=== PATIENT | male | born 1950 | race Caucasian/White ===

== ENCOUNTER 2023-10-17 07:33 | Observation (INO) ==
--- NOTE | 2023-09-03 09:44 | PAT Medication Instructions ---
Medication Instructions Date of Service September 03, 2023 Home Medications Medication Instructions Recorded furosemide 20 mg tablet (Lasix) 20 mg PO DAILY PRN edema #7 tabs 04/14/20 furosemide 20 mg tablet (Lasix) 20 mg PO DAILY PRN edema alpha lipoic acid 50 mg tablet 50 mg PO QAM aspirin 81 mg capsule 81 mg PO HS atenolol 25 mg tablet 25 mg PO QAM 1 cholecalciferol (vitamin D3) 50 mcg (2,000 unit) capsule (Vitamin D3) 50 mcg PO DAILY cyanocobalamin (vitamin B-12) 50 mcg tablet (Vitamin B-12) 50 mcg PO QAM empagliflozin 10 mg tablet (Jardiance) 10 mg PO QAM losartan 100 mg-hydrochlorothiazide 25 mg tablet 1 tab PO HS metformin 500 mg tablet 500 mg PO BID multivitamin 1 tab PO QAM potassium chloride 20 mEq tablet,extended release 20 meq PO BID rosuvastatin 20 mg tablet 20 mg PO HS warfarin 10 mg tablet 10 mg PO HS warfarin 7.5 mg tablet 7.5 mg PO HS ASK your prescriber and surgeon warfarin 10 mg tablet 10 mg PO HS warfarin 7.5 mg tablet 7.5 mg PO HS STOP taking 3 days before surgery empagliflozin 10 mg tablet (Jardiance) 10 mg PO QAM STOP taking 2 weeks before surgery alpha lipoic acid 50 mg tablet 50 mg PO QAM DO NOT take the morning of surgery furosemide 20 mg tablet (Lasix) 20 mg PO DAILY PRN edema cholecalciferol (vitamin D3) 50 mcg (2,000 unit) capsule (Vitamin D3) 50 mcg PO DAILY cyanocobalamin (vitamin B-12) 50 mcg tablet (Vitamin B-12) 50 mcg PO QAM metformin 500 mg tablet 500 mg PO BID multivitamin 1 tab PO QAM potassium chloride 20 mEq tablet,extended release 20 meq PO BID Take morning of surgery With a small sip of water, OTHERWISE NOTHING TO EAT OR DRINK AFTER MIDNIGHT: atenolol 25 mg tablet 25 mg PO QAM Take evening before surgery potassium chloride 20 mEq tablet,extended release 20 meq PO BID rosuvastatin 20 mg tablet 20 mg PO HS losartan 100 mg-hydrochlorothiazide 25 mg tablet 1 tab PO HS metformin 500 mg tablet 500 mg PO BID aspirin 81 mg capsule 81 mg PO HS Other Notes If you have any questions please call us at [phone] or [phone] or [phone] or [phone]
--- NOTE | 2023-09-11 08:12 | Anesthesiology Consultation ---
Date of Service September 11, 2023 Assessment & Plan (1) Encounter for pre-operative examination: Chart Review Chart Review: Acceptable Risk for Surgery (pending PCP clearance ) and Patient seen in Pre Admission Testing - Awaiting PCP clearance 09/26/23 (S) (please fax preop testing to PCP to review at PCP appt) - Check coags AM DOS - Check BSG AM DOS - Patient is NOT an OPJ candidate (surgeon's office informed) (Discussed with Dr. Cedillo) Per PAT appt on 09/11/23, no recent illness/disease exposures, illness related symptoms, or recent illness/disease positive tests. Will leave to surgeon's discretion if preop Covid testing needed Patient seen by cardiology 07/17/2023 = patient seen for follow-up and establish CAD. Had RCA stent in the past. LV systolic function is low normal. 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 Also has diabetes. Fortunately from cardiac standpoint he is asymptomatic and denies SOB, angina, syncope, or presyncope. No bleeding complications with Coumadin. Chronic diastolic heart failuregiven past diabetesadded Jardiance. Atrial fibrillationheart rate is controlled and on Coumadin. [id number] under good control. Preop evaluation: He is scheduled to get total hip replacement. 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 to this. Can hold Coumadin 7 days. 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 History Surgery Operation Date: 10/17/23 09:15 Proposed Procedures p Left Total Hip Replacement Anterior Approach - Cm Gates MD Height/Weight Height: 6 ft Weight: 126.2 kg Allergies Allergy/AdvReac Type Severity Reaction Status Date / Time No Known Allergies Allergy Verified 09/02/23 12:31 Medications Home Medications Medication Instructions Recorded Confirmed Last Taken furosemide 20 mg tablet (Lasix) 20 mg PO DAILY PRN edema #7 tabs 04/14/20 09/02/23 Unknown alpha lipoic acid 50 mg tablet 50 mg PO QAM 09/02/23 09/02/23 Unknown aspirin 81 mg capsule 81 mg PO HS 09/02/23 09/02/23 Unknown atenolol 25 mg tablet 25 mg PO QAM 09/02/23 09/02/23 Unknown cholecalciferol (vitamin D3) 50 50 mcg PO DAILY 09/02/23 09/02/23 Unknown mcg (2,000 unit) capsule (Vitamin D3) cyanocobalamin (vitamin B-12) 50 50 mcg PO QAM 09/02/23 09/02/23 Unknown mcg tablet (Vitamin B-12) empagliflozin 10 mg tablet 10 mg PO QAM 09/02/23 09/02/23 Unknown (Jardiance) losartan 100 1 tab PO HS 09/02/23 09/02/23 Unknown mg-hydrochlorothiazide 25 mg tablet metformin 500 mg tablet 500 mg PO BID 09/02/23 09/02/23 Unknown multivitamin 1 tab PO QAM 09/02/23 09/02/23 Unknown potassium chloride 20 mEq 20 meq PO BID 09/02/23 09/02/23 Unknown tablet,extended release rosuvastatin 20 mg tablet 20 mg PO HS 09/02/23 09/02/23 Unknown warfarin 10 mg tablet 10 mg PO HS 09/02/23 09/02/23 Unknown warfarin 7.5 mg tablet 7.5 mg PO HS 09/02/23 09/02/23 Unknown Past Medical History Medical History Chronic diastolic (congestive) heart failure CAD (coronary artery disease) s/p RCA stent 2005 On anticoagulant therapy Diabetes patient denies; on jardiance (for heart per patient) and metformin (for weight loss per patient) - Hgb A1C 6.4 at PAT appt on 09/11/23 (patient with presumed diabetes- well controlled) Hyperlipidemia Cough started ~ 2 weeks ago, was told by PCP was viral, no other symptoms reported in past 10 days almost complete resolution as of PAT appt 09/11/23 Edema LEs- on Lasix Neuropathy To bilateral feet Sleep apnea CPAP Obesity states reason for Metformin History of nephrectomy, 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 Hypertension Atrial fibrillation on warfarin daily- follows w/ [facility] cardio Exercise / Class Metabolic Activity II 4-5 Yardwork/Stairs/Walk up hill (one flight of stairs- no chest pain or SOB ) Past Surgical History Surgical History Hx of colonoscopy Hx of arthroscopic knee surgery Hx of cataract extraction Hx of cardiac catheterization 2005 X 1 stent; chest "pinching" and EKG changes, [facility] Past Anesthesia History No Hx of Anesthesia Complications and No Family Hx of Anesthesia Complications History of PONV No Hx of PONV and No Hx of Motion Sickness Social History Smoking Status: Never smoker Do You Dip or Chew Tobacco: No Hx Alcohol Use: Yes Alcohol type: beer alcohol intake frequency: holidays/special occasions only Hx Substance Use: No substance use type: does not use Review of Systems Patient denies chest pain, shortness of breath, dyspnea on exertion, reflux, cough, wheezing, palpitations. No hx of seizures, stroke, UT. No hx of blood clots or blood transfusions Physical Exam Vital Signs VITALS BP 116/73 P 68 TEMP 97.6 SP02 96% RESP 16 Constitutional no acute distress ENMT Mouth: no TMJ clicking Thyromental Distance: > or= 3.5 Finger Breadths (3.5) Mallampati Class: II Neck neck extension not limited Respiratory normal respiratory effort; no respiratory distress Auscultation: lungs clear to auscultation bilaterally and + diminished lung sounds (mildly throughout ); no wheezes Cardiovascular Heart Sounds: no murmur Vessels: no carotid bruit Irregularly irregular - rate controlled Musculoskeletal Spine: no pain with cervical ROM Extremities: extremities normal to inspection Psychiatric Orientation: alert Lab Results Anesthesia Preop Results Results Anesthesia Widget: WBC 5.53 K/ul (4.8-10.8) 09/11/23 Hgb 16.4 g/dl (14.0-18.0) 09/11/23 Hct 49.1 % (42.0-52.0) 09/11/23 Plt 210 K/uL (130-400) 09/11/23 Na 143 mmol/L (136-145) 09/11/23 K 4.2 mmol/L (3.5-5.1) 09/11/23 Cl 101 mmol/L (98-107) 09/11/23 CO2 34 mmol/L (21-32) H 09/11/23 BUN 24 mg/dl (6-23) H 09/11/23 Creat 1.58 mg/dl (0.6-1.4) H 09/11/23 Glucose Level 108 mg/dl (70-99(Fasting)) H 09/11/23 PT 22.7 Seconds (9.0-12.0) H 09/11/23 PTT 36.4 Seconds (21.0-31.0) H 09/11/23 INR 2.2 (0.9-1.1) H 09/11/23 HA1c 6.4 % (4.5-5.6) H 09/11/23 Urine Color Yellow 09/11/23 Urine Appearance Clear (Clear) 09/11/23 Urine pH 7.0 (4.5-7.5) 09/11/23 Urine Specific [place] 1.009 (1.000-1.030) 09/11/23 Urine Protein Negative (Negative) 09/11/23 Urine Glucose (UA) 2+ (Negative) H 09/11/23 Urine Ketones Negative (Negative) 09/11/23 Urine Blood Negative (Negative) 09/11/23 Urine Nitrite Negative (Negative) 09/11/23 Urine Bilirubin Negative (Negative) 09/11/23 Urine Urobilinogen Negative (Negative) 09/11/23 Urine Leukocyte Esterase Negative (Negative) 09/11/23 Blood Type B Positive 09/11/23 Antibody Screen NEGATIVE 09/11/23 Testing Laboratory Results Elevated creatinine (creat 1.4 per [facility] labs in 06/2022)- will send labs for PCP review Electrocardiogram Date: 09/11/23 Findings: + AFIB @ (61bpm ) Left axis deviation Low voltage QRS Poor R wave progression, consider anterior UT versus lead placement versus LVH When compared with EKG from April 14, 2020no significant change was found per cardio Chest X-Ray Date: 09/11/23 Findings: + NAD FINDINGS: No lines and tubes are seen. Calcified aortic knob is seen. Reticular interstitial opacities are seen. No evidence of pleural effusion or pneumothorax Echocardiogram Date: 06/22/21 EF: 50-54% LV Function: normal RWMA: + none Other Findings: no LVH No left ventricular mural thrombus Right ventricular cavity is mildly dilated with mildly reduced systolic function Biatrial dilation Mild TR. Aortic root and proximal ascending aorta are normal size based off body surface area Normal pulmonary pressure Stress Test Date: 08/12/23 Type: nuclear Probably normal pharmacologic Cardiolite stress test. The described abnormality most likely represents artifact Normal pharmacologic stress EKG Normal post-rest ejection fraction. Normal wall motion analysis imaging Cardiac Catheterization Date: 08/28/19 LAD 40%not hemodynamically significant D3 40% ostial stenosis Left circumflex with ostial 20% stenosis RCA with luminal irregularities RCA stent previously placed looks perfect Stress test showing anterior ischemia is presumably false positive
--- NOTE | 2023-10-15 16:54 | History & Physical Report ---
Date of Service October 15, 2023 Assessment & Plan (1) Degenerative joint disease of left hip: Plan Left total hip replacement direct anterior approach. Monitor overnight due to A-fib per anesthesia History of Present Illness Chief Complaint: Left hip pain Primary Care Provider: Macy Lui MD Patient is a 72-year-old male with a greater than 1 year history of left hip and groin pain. It has been associated with decreased decreased range of motion and increased pain with all activities of daily living. He has decreased standing and walking tolerance. Radiographic evidence of severe degenerative arthritis of the hip. He has failed both sacroiliac and intra-articular injections and is admitted for elective hip replacement surgery. He also has a history of severe spine disease and atrial fibrillation for which he is on chronic Coumadin. Allergies Allergy/AdvReac Type Severity Reaction Status Date / Time No Known Allergies Allergy Verified 09/02/23 12:31 Home Medications Medication Instructions Recorded Confirmed Type furosemide 20 mg tablet (Lasix) 20 mg PO DAILY PRN edema #7 tabs 04/14/20 09/02/23 Rx alpha lipoic acid 50 mg tablet 50 mg PO QAM 09/02/23 09/02/23 History aspirin 81 mg capsule 81 mg PO HS 09/02/23 09/02/23 History atenolol 25 mg tablet 25 mg PO QAM 09/02/23 09/02/23 History cholecalciferol (vitamin D3) 50 50 mcg PO DAILY 09/02/23 09/02/23 History mcg (2,000 unit) capsule (Vitamin D3) cyanocobalamin (vitamin B-12) 50 50 mcg PO QAM 09/02/23 09/02/23 History mcg tablet (Vitamin B-12) empagliflozin 10 mg tablet 10 mg PO QAM 09/02/23 09/02/23 History (Jardiance) losartan 100 1 tab PO HS 09/02/23 09/02/23 History mg-hydrochlorothiazide 25 mg tablet metformin 500 mg tablet 500 mg PO BID 09/02/23 09/02/23 History multivitamin 1 tab PO QAM 09/02/23 09/02/23 History potassium chloride 20 mEq 20 meq PO BID 09/02/23 09/02/23 History tablet,extended release rosuvastatin 20 mg tablet 20 mg PO HS 09/02/23 09/02/23 History warfarin 10 mg tablet 10 mg PO HS 09/02/23 09/02/23 History warfarin 7.5 mg tablet 7.5 mg PO HS 09/02/23 09/02/23 History Past Med/Surg History Medical History Chronic diastolic (congestive) heart failure CAD (coronary artery disease) s/p RCA stent 2006 On anticoagulant therapy Diabetes patient denies; on jardiance (for heart per patient) and metformin (for weight loss per patient) - Hgb A1C 6.4 at PAT appt on 09/11/23 (patient with presumed diabetes- well controlled) Hyperlipidemia Cough started ~ 2 weeks ago, was told by PCP was viral, no other symptoms reported in past 10 days almost complete resolution as of PAT appt 09/11/23 Edema LEs- on Lasix Neuropathy To bilateral feet Sleep apnea CPAP Obesity states reason for Metformin History of nephrectomy, 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 Hypertension Atrial fibrillation on warfarin daily- follows w/ [facility] cardio Surgical History Hx of colonoscopy Hx of arthroscopic knee surgery Hx of cataract extraction Hx of cardiac catheterization 2006 X 1 stent; chest "pinching" and EKG changes, [facility] Social History Smoking Status: Never smoker Second Hand Exposure: No; Do You Dip or Chew Tobacco: No; Tobacco Cessation Education Requested by Patient: No Hx Alcohol Use: Yes Alcohol type: beer Hx Substance Use: No Preferred Language: Maldivian Communication Ability: Effective [employer] Required: No Beliefs That Will Affect Care: None Current Living Situation: Spouse Other Information That Helps Us Care for You: No Feels Safe at Home: Yes Safety Concerns: Feels Safe At This Time Assistive Devices: CPAP Review of Systems Review of Systems: Hip pain Physical Exam Physical Exam: Weight 126 kg BMI 38 General: Obese male who appears his stated age. HEENT: NCAT, EOMI, PERRLA Neck: Neck negative JVD negative bruits Heart: Irregularly irregular rhythm without murmurs or gallops Lungs: Breath sounds clear and present in all odell Abdomen: Obese soft nontender bowel sounds positive Extremities: Left hip shows equal leg lengths to the right passive range of motion is 5 to 85 degrees flexion -10 degrees internal rotation all which reproduces groin pain Neurological and vascular: Intact
[~2023-10-17 07:33] MED LIST: ACETAMINOPHEN 500 MG TAB PO SCH; ATENOLOL 25 MG TABLET PO ONE; FAMOTIDINE 20 MG TAB PO SCH; GABAPENTIN 300 MG CAP PO SCH; LR 500ML BOLUS, THEN 15ML/HR IV SCH; LR 60ML/HR IV SCH; METOCLOPRAMIDE HCL 10 MG TABLET PO SCH; ROPIVACAINE 0.5% 5 MG/ML 30 ML VIAL ONE; ROPIVACAINE 0.5% HCL/PF 150 MG, BUPIVACAINE 0.75% MPF 20 ML, EPINEPHrine 30MG/30ML (OR ... INSTIL SCH; TRANEXAMIC ACID 1,000 MG **IV Intra-op IV SCH; TRANEXAMIC ACID 1,000 MG **IV Pre-op IV SCH; dexAMETHasone 4 MG TAB PO SCH; traMADol HCL 50 MG TABLET PO SCH
[2023-10-17] MEDS ORDERED: MIDAZOLAM HCL 1 MG/ML 2ML VIAL ONE (07:43)
--- OUTSIDE RECORDS SUMMARY | 2023-10-17 07:43 | External Medical Summary | Summary of Care ---
Author Name Unknown Organization [facility] Address [address] [place] [address] Phone [phone] Care Team Providers Care Instrument Operator Name Role Phone Billy Hobbs MD Primary Care Provider Reason for Visit * Reason Comments pre-op exam Hip surgery 10/17 Dr. Gates Encounter Details Date Type Department Care Team (Late st Contact Info) Description 09/26/2023 1:20 PM EST Office Visit [facility] [address] [facility] [place] [address] Macy Lui MD [address] [place] [address] Preoperative clearance*; Risk and functional assessment; DM type 2 nursing care encounter ([facility]); Type 2 diabetes mellitus with hemoglobin A1c goal of less than 7.5% ([facility]); Obstructive sleep apnea of adult; Primary osteoarthritis of one hip, left; Atherosclerosis of [place] coronary artery of [place] heart without angina pectoris; Chronic atrial fibrillation ([facility]); HTN, goal below 140/90; Chronic diastolic CHF (congestive heart failure) ([facility]); S/P angioplasty with stent Allergies No known active allergiesdocumented as of this encounter (statuses as of 09/30/2023) Medications Medication Sig Dispensed Refills Start Date End Date Status MULTIVITAMIN PO TABS Take 1 Tab by mouth daily. 0 0 03/04/2006 Active metroNIDAZOLE, topical, (METROCREAM) 0.75 % creamIndications:R osacea Apply topically to affected area 2 times a day. apply to affected area. 45 g 5 09/01/2018 Active Aspirin 81 MG Oral Tablet Delayed Release Take 1 Tablet by mouth at bedtime. 0 Active Alpha-Lipoic Acid 100 MG TABS Take 1 Tab by mouth daily. 0 Active Cholecalciferol (VITAMIN D) 2000 units Tablet Take 2000 units by mouth once daily 90 Tab 3 06/15/2019 Active nitroglycerin (NITROSTAT) 0.4 MG SUBLIndications:At herosclerosis of [place] coronary artery of [place] heart without angina pectoris one tab under tongue as needed for chest pain maximum 3 doses 25 Tab 5 06/15/2019 Active Cyanocobalamin (VITAMIN B 12) 500 MCG TABS Take 500 mcg by mouth daily. 0 Active CPAP every night at bedtime. Auto 5-20 cm 0 Active Tylenol 325 MG Oral Capsule (Acetaminophen) Take by mouth . 0 Acti ve Furosemide 40 MG Oral Tablet (Lasix) TAKE ONE TABLET BY MOUTH TWICE A DAY 180 Tablet 3 03/15/2023 03/14/2024 Active Potassium Chloride ER 20 MEQ Oral Tablet Extended Release TAKE ONE TABLET BY MOUTH TWICE A DAY 180 Tablet 3 03/15/2023 Active Rosuvastatin Calcium 20 MG Oral Tablet (Crestor)Indicatio ns:Dyslipidemia, goal LDL below 70 TAKE 1 TABLET BY MOUTH DAILY 90 Tablet 3 03/13/2023 03/12/2024 Active Losartan Potassium-HCTZ 100-25 MG Oral Tablet (Hyzaar) TAKE ONE TABLET BY MOUTH EVERY DAY IN THE MORNING 90 Tablet 3 02/25/2023 02/25/2024 Active metFORMIN HCl 500 MG Oral Tablet (Glucophage)Indica tions:Prediabetes TAKE 1 TABLET BY MOUTH TWICE A DAY WITH MORNING AND EVENING MEALS 180 Tablet 0 11/17/2022 11/17/2023 Active Fluticasone Propionate 50 MCG/ACT Nasal Suspension (Flonase Allergy Relief) Administer 2 Sprays into nostril in the morning and 2 Sprays before bedtime. Pt takes as needed only. 0 Active Empagliflozin 10 MG Oral Tablet (Jardiance) Take 1 Tablet by mouth in the morning. 90 Tablet 3 07/26/2023 Active Fluorouracil 5 % External Cream (Efudex)Indication s:AK (actinic keratosis) Apply twice daily to face and scalp for 3-4 weeks, followed by Vaseline until healed. 40 g 1 09/05/2023 Active Atenolol 50 MG Oral Tablet (Tenormin)Indicati ons:Atherosclerosi s of [place] coronary artery of [place] heart without angina pectoris TAKE ONE-HALF TABLET BY MOUTH EVERY DAY IN THE MORNING 45 Tablet 3 09/23/2023 09/22/2024 Active documented as of this encounter (statuses as of 09/30/2023) Active Problems Problem Noted Date Diagnosed Date Congestive heart failure with cardiomyopathy Sacroiliitis, not elsewhere classified 3 Chronic atrial fibrillation 01/24/2023 Type 2 diabetes mellitus wit h hemoglobin A1c goal of less than 7.5% 07/05/2022 Diabetes mellitus without complication 2 Chronic diastolic CHF (congestive heart failure) 04/04/2022 Hypertensive heart and kidne y disease with chronic diastolic congestive heart failure and stage 3a chronic kidney disease 12/19/2021 Acute left-sided low back pain without sciatica 06/14/2021 Overview: 06/27/2021 Will ref to PT 06/14/2021 see pt's msg get Xrays Hypertensive kidney disease with stage 3a chronic kidney disease 04/06/2021 Chronic kidney disease, stage 3a 11/07/2020 Overview: Per CKD protocol Pulmonary hypertension, unspecified 05/24/2020 Ankle edema, bilateral 04/25/2020 History of adenomatous polyp of colon 09/16/2019 Sick sinus syndrome 03/16/2019 Aortic root enlargement 03/16/2019 Screen for colon cancer 11/12/2016 Overview: Sched 05/09/2020 02/18/2017 colonoscopy With polyps Repeat colonoscopy in 3 years for surveillance Was due for 10 yr 12/2015 Screening for prostate cancer 11/12/2016 Overview: PSA Results: PSA(ng/mL) Christiano Dt/Tm Resulted Value Status 09/15/19 8:24A 09/15/19 2.52 FINAL 09/30/18 9:32A 09/30/18 2.41 FINAL 08/27/17 8:46A 08/27/17 1.89 FINAL 07/04/16 8:08A 07/04/16 2.00 FINAL 05/03/14 7:12A 05/03/14 1.13 FINAL 01/09/13 3:08P 01/09/13 1.16 FINAL Obstructive sleep apnea of adult 07/20/2016 Overview: 06/27/2021 using and "really likes it " 02/17/2018 never got CPAP . Encouraged to see sleep med. To get reevaluated Pt accepts 09/2015 Impression: 1-Moderate obstructive sleep apnea syndrome exacerbated to the severe degree during REM sleep. These respiratory events were associated with oxygen desaturations (efe of 84 %). 2-At a CPAP setting of 5 cmH2O, the apnea-hypopnea index was normalized. At this setting, snoring was eliminated and oxygen saturation was maintained above 85 %. Of note, patient slept in a recliner during this study. 3-Abnormal sleep architecture likely due to respiratory events, PAP therapy and first night effect. Recommendations: Auto-PAP 5-15 cmH2O with heated humidity with a large ResMed Mirage Quattro full face mask. Last Assessment & Plan: using and "really likes it " Personal history of skin cancer 01/26/2016 Overview: Basal Cell Carcinoma R sikhism - 2006 BCC - L shoulder 2007 BCC - R upper back - 2012 BCC -Left lateral eyebrow - 2016 BCC - Right sikhism - 2016 HTN, goal below 140/90 05/05/2014 Overview: 09/07/2015 Usually too small cuff overestimates the pressure and it is the case here, ~10 points, should try get larger cuff (machine seems to be working well ) Based on his record his blood pressure is well controlled at home. No need to change meds Blood pressures today Mine #1 BP 140/78 P 70 R 16 #2 BP 140/78 P 68 R 16 PT'S #1 BP 148/89 P 66 #2 BP 150/90 P 66 10 MINUTES BETWEEN THE PATIENTS BLOOD PRESSURE CUFF IF TOO SMALL FOR HIS ARM, HE IS GOING TO GET EITHER A NEW MACHINE OR TRY TO GET A LARGER CUFF. HOME BLOOD PRESSURES 08/24 BP 121/75 P 62 08/25 BP 150/75 P 61 08/27 BP 147/85 P 56 11/ BP 139/74 P 56 08/29 BP 145/75 P 63 11/ BP 148/83 P 71 11 BP 123/74 P 68 09/03 BP 135/81 P 68 11 BP 136/71 P 71 09/06 BP 132/69 P 63 Ventral hernia without obstruction or gangrene 0 01/09/2013 Aortic root dilation 07/19/2012 Overview: ECHO 05/2021 Interpretation Summary The qualitative LV ejection fraction is 50-54% (normal). The left ventricular cavity size is normal. The LV wall thickness is normal. There is no left ventricular mural thrombus. The right ventricular cavity is mildly dilated with mildly reduced systolic function. Biatrial dilation. The aortic root and proximal ascending aorta are normal sized based off body surface area. Normal pulmonary pressure. 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 Fletcher msg Cath shows the RCA stent is perfect. A 40% mid-LAD lesion is NOT significant by FFR testing (not even close to being abnormal). We conclude that he is fully revascularized and the stress test is a false positive Stent RCA 01/31. 40% LAD 08/05 stress echo inconclusive as not acheive target HR. No clear ischemia 02/04 mild abn stress test, symptoms had resolved so elected medical managment Asa, plavix 01/05 neg carotid. JOSE A inconclusive due to vessel calcification, no significant art occulsion suggested. NOt reliable. 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 Actinic keratosis 07/08/2007 S/P angioplasty with stent 03/03/2006 Overview: RCA 01/31 Advance directive discussed with patient 005 Overview: 11/12/2016 pt confirms promises to bring . 07/06/2016 Discussed advance directive and living will 1 POA 2 POA son Jorge [phone] PONicolás [place] Given brochure No, Advance Directive brochure given to patient. documented as of this encounter (statuses as of 09/30/2023) Resolved Problems Problem Noted Date Diagnosed Date Resolved Date Class 2 severe obesity due t o excess calories with serious comorbidity and body mass index (BMI) of 38.0 to 38.9 in adult 04/04/2022 2 Abnormal LFTs 08/23/2015 03/11/2019 Overview: ALT Results: ALT(U/L) Christiano Dt/Tm Resulted Value Status 12/13/17 7:09A 12/13/17 47 FINAL 08/27/17 8:46A 08/27/17 49 FINAL 06/06/17 7:28A 06/06/17 56* FINAL 07/06/2016 will check Hep And iron sat . Anticoagulation management encounter 07/17/2012 03/11/2019 Abnormal blood chemistry 11/13/2011 Overview: Fasting glucose, proteinuria Acute Neutrophilic Dermatosis 02/15/2010 02/17/2018 Malignant neoplasm of skin of trunk 06/05/2007 06/02/2009 Overview: Will observe; treat if it becomes symptomatic or a lot larger ICD-10 update of inactive term EXAMINATION OF PARTICIPANT I N CLINICAL TRIAL - COSTAR II 03/14/2006 02/10/2010 Overview: Renamed Per Clinical Trials Billing Project. COSTAR II: COBALT CHROMIUM STENT WITH ANTIPROLIFERATIVE FOR RESTENOSIS II TRIAL REMI # [id number] PI: Prashant Fletcher MD SC: Erika Cohn RN, BSN Costar II Clinical Trial*[id number] 03/14/2006 03/21/2011 Overview: Renamed Per Clinical Trials Billing Project. COSTAR II: COBALT CHROMIUM STENT WITH ANTIPROLIFERATIVE FOR RESTENOSIS II TRIAL REMI # [id number] PI: Prashant Fletcher MD SC: Erika Cohn RN, BSN Coronary atherosclerosis of [place] coronary artery 02/12/2006 07/17/2009 Overview: S/P stent RCA HTN, goal below 130/80 05/05 Overview: Hyzaar, atenolol Dyslipidemia, goal to be determined 10/04/2009 Overview: Per Lipid Taxonomy. Family history of ischemic heart disease 07/17/2009 Cervicalgia 12/29/2010 F/u of acute posterior myocardial infarction 05/19/2009 Overview: Modified by Acute [place] Protocol #5. Prediabetes 07/05/2022 Overview: Hemoglobin AIC Results: HEMOGLOBIN, A1C(%) Christiano Dt/Tm Resulted Value Status 11/08/11 7:33A 11/08/11 5.6 FINAL 01/26/11 7:25A 01/26/11 5.6 FINAL 02/27/06 7:02A 02/27/06 5.8 FINAL Glucose Results: GLUCOSE(mg/dL) Christiano Dt/Tm Resulted Value Status 06/27/15 7:10A 06/27/15 113 FINAL 05/03/14 7:12A 05/03/14 114 FINAL 09/01/13 7:11A 09/01/13 113 FINAL documented as of this encounter (statuses as of 09/30/2023) Immunizations Name Administration Dates Next Due COVID-19 mRNA, LNP-s, No Pre serve, 2-Dose Series (Moderna) 12/22/2020,11/23/2020 COVID-19, mRNA, LNP-s, PF, B ooster, 100mcg/0.5mg (Moderna) 08/23/2021 Pneumococcal Conjugate Vacc, 13 Valent (Prevnar) 09/16/2017,11/12/2016 Pneumococcal Polysaccharide PPV23 (Pneumovax) 09/16/2019,11/19/2006 SEASONAL INFLUENZA, PF, 6 M & Above, IM , (FLULAVAL or FLUZONE) 09/01/2018 Seasonal Influenza, Quadriva lent Hd (Fluzone Hd) 08/02/2023,07/05/2022,07/25/2021 Seasonal Influenza, Quadriva lent Hd, 65+ Yrs 07/15/2020 Seasonal Influenza, Quadriva lent, No Preserve, IM 07/23/2019,09/16/2017,07/06/2016,08/23 Seasonal Influenza, Split, I IV3, With Preserve, Inj 07/22/2014,09/03/2013,07/24/2012,10/03,12/29/2010,07/18/2009 Seasonal Influenza, Trivalen t, High Dose, No Preserve, IM 07/30/2019 TDAP (age 10 and older)(Boostrix) 09/16/2017 TDAP (age 11 and older)(Adacel) 02/15/2010 Varicella Zoster Vaccine (Adult) 08/23/2015 Zoster Vaccine Recombinant (Shingrix) 10/30/2020 ,07/15/2020 documented as of this encounter Social History Tobacco Use Types Packs/Day Years Used Date Smoking Tobacco: Never Smokeless Tobacco: Never Alcohol Use Standard Drinks/Week Comments Yes 0 (1 standard drink = 0.6 oz pur e alcohol) rare PHQ-2 Answer Date Recorded PHQ Adult Total Score 0 11/26/2022 Hunger Vital Sign Answer Date Recorded Within the past 12 months, y ou worried that your food would run out before you got the money to buy more. Never true 01/23/20 23 Within the past 12 months, t he food you bought just didn't last and you didn't have money to get more. Never true 01/22/2023 Sex and Gender Information Value Date Recorded Sex Assigned at Male 03/16/2019 9:12 AM EDT Gender Identity Male 03/16/2019 9:12 AM EDT Sexual Orientation Straight 03/16/2019 9: 12 AM EDT Job Start Date Occupation Industry Not on file Not on file Not on file documented as of this encounter Last Filed Vital Signs Vital Sign Reading Time Taken Comments Blood Pressure 120/66 09/26/2023 1:11 PM EST Pulse 68 09/26/2023 1:11 PM EST Temperature 36.5 C (97.7 F) 09/26/2023 1:11 PM ES T Respiratory Rate 16 09/26/2023 1:11 PM EST Oxygen Saturation 96% 09/26/2023 1:11 PM EST Inhaled Oxygen Concentration - - Weight 125.6 kg (276 lb 14.4 oz) 09/26/2023 1:11 PM EST Height 181 cm (5' 11.26") 09/26/2023 1:11 PM EST Body Mass Index 38.34 09/26/2023 1:11 PM EST documented in this encounter Patient Instructions * Patient Instructions* April Snider LPN - 09/26/2023 1:09 PM EST Images from the original note were not included. Patient Instructions - Fall Prevention (This education is for all patients over 65 regardless of symptoms) Remember to take your current medications as prescribed. In order to prevent falls, you are encouraged to: Exercise Utilize assistive/adaptive devices Avoid multifocal lenses when walking Avoid hazards in home Maintain a regular toileting schedule Any questions please contact our office. Preventing Falls in the Home (This education is for all patients over 65 regardless of symptoms) As you get older, falls are more likely. Thats because your reaction time slows. Your muscles and joints may also get stiffer, making them less flexible. Illness, medications, and vision changes can also affect your balance. A fall could leave you unable to live on your own. To make your home safer, follow these tips: Floors Put nonskid pads under area rugs Remove throw rugs Replace worn floor coverings Tack carpets firmly to each step on carpeted stairs. Put nonskid strips on the edges of uncarpeted stairs Keep floors and stairs free of clutter and cords Arrange furniture so there are clear pathways Clean up any spills right away Bathrooms Install grab bars in the tub or shower Apply nonskid strips or put a nonskid rubber mat in the tub or shower Sit on a bath chair to bathe Use bathmats with nonskid backing Lighting Keep a flashlight in each room Put a nightlight along the pathway between the bedroom and the bathroom [employer] Patient Education Copyright 2008 - 2010 Oliver except where otherwise noted Preventing Falls: Exercises to Improve Balance, Flexibility, Strength, and Staying Power (This education is for all patients over 65 regardless of symptoms) Certain types of exercises may help make you less likely to fall. Try the ones below. Or do other exercises that your healthcare provider suggests. Depending on your health, you may need to start slowly. Dont let that stop you. Even small amounts of exercise can help you. Be sure to talk to yourhealthcare provider before starting any exercise program. Improve Balance Many types of exercise can help improve balance. Kota chi and yoga are good examples. Heres another one to try. You can do it anytime and almost anywhere. Stand next to a counter or solid support. Push yourself up onto your tiptoes. Hold for 5 seconds. If you start to lose your balance, hold on to the counter. Rest and repeat 5 times. Work up to holding for 20 to 30 seconds, if you can. Increase Flexibility Being more flexible makes it easier for you to move around safely. Try exercises like the seated hamstring stretch. Sit in a chair and put one foot on a stool. Straighten your leg and reach with both hands down either side of your leg. Reach as far down your leg as you can. Hold for about 20 seconds. Go back to the starting position. Then repeat 5 times. Switch legs. Build Strength Resistance exercises help build strength. You can do them without equipment. Or you can use weights, elastic bands, or special machines. One such exercise is called the biceps curl. You can hold a 1 pound weight or even a can of soup. Do this exercise at least 3 times a week. Strive for everyday. Sit up straight in a chair. Keep your elbow close to your body and your wrist straight. Bend your arm, moving your hand up to your shoulder. Then slowly lower your arm. Repeat 5 times. Switch to the other arm. Build Your Staying Power Aerobic exercises make your heart and lungs stronger so you can keep moving longer. Walking and swimming are two of the best types of exercises you can do. Using a stationary bike is great, too. Find an aerobic exercise that you enjoy. Start slowly and build up. Even 5 minutes is helpful. Aimfor a goal of 30 minutes, at least 3 times a week. You dont have to do 30 minutes in one session. Break it up and walk a little throughout the day. More Helpful Tips Start easy. Slowly work up to doing more. Talk with your healthcare provider about the best exercises for you. Call senior centers or health clubs about exercise programs. If needed, have a family member watch you walk every so often to check your stability. Exercise with a friend. Choose an activity you both enjoy. Try exercises that you can do anytime, anywhere. Here are two examples. Have someone with you when you first try these: Practice walking by placing one foot right in front of the other. Stand up and sit down 10 times. Repeat this throughout the day. Oliver Patient Education Copyright 2008 - 2010 Oliver except where otherwise noted. Preventing Falls: Moving Safely Using a Cane or Walker (This education is for all patients over 65 regardless of symptoms) Keep the cane away from your feet so you dont trip. A walking aid, such as a cane or walker, can help you stay more independent and avoid falls. Remember to keep your walking aid within easy reach when youre in a chair or in bed. And learn how to use it safely so you dont injure yourself. Using a Cane If you have a stronger side, hold the cane on that side. Get your balance. Move the cane and your weaker leg forward. Support your weight on both the cane and your weaker side. Step with your stronger leg. Start again from step 1. If youre using a folding walker, be sure you know how to lock it open. Check that its locked open before each use. Using a Walker Roll the walker (or lift it, if youre using one without wheels) forward about 12 inches. Step forward with your weaker leg first. Use the walker to help keep your balance. Bring your other foot forward to the center of the walker. Start again from step 1. Helpful Tips Check with your healthcare provider about the right walking aid to use. Ask about a walker with a seat attached. Check the tips of your cane or walker to make sure they have nonskid covers. Move slowly from room to room. Dont nichols. Sit down to get dressed. Use a julio pack or backpack to keep your hands free. Get help for jobs that mean climbing, even on a stepstool. Oliver Patient Education Copyright 2009 - 2010 Oliver except where otherwise noted. Treating Urinary Incontinence in Men (This education is for all patients over 65 regardless of symptoms) You can't always control the release of urine. You may leak urine. Or you may not be able to hold your urine until you can get to a bathroom. This is called urinary incontinence. The problem can be managed. Talk to your doctor about your treatment options. Taking Medications Prescription medications may help you. They may: Help the sphincter to work better. (This is the muscle that closes to keep urine from leaking out of the bladder.) Help stop the bladder from vivienne too often to push urine out. Help the bladder muscles contract with more force. Help relax the sphincter muscle and allow urine to flow more freely. Making Changes to Your Routine Certain changes in your daily routine may help. These include: Avoiding caffeine and alcohol. Using timed voiding. This is following a schedule for drinking fluids and urinating. Doing Kegel exercises daily. These exercises involve tightening the muscles in your sphincter and around your bladder to help strengthen them. Your doctor can explain how to do them. Using a Catheter A catheter is a narrow tube that is inserted through the urethra into the bladder. It drains urine.A condom catheter covers the penis. It channels urine into a collection bag. It is worn most of thetime. Intermittent catheterization means inserting a catheter to drain the bladder, then removing it. This is done on a regular schedule. Having Surgery If other options don't work, surgery may be recommended. If surgery is an option, your healthcare provider can discuss it with you and explain its risks and benefits. Healing After Prostate Surgery Surgery on the prostate gland can cause incontinence. Most often, the incontinence is only for a short time. It clears up when healing is complete. Very rarely, prostate surgery can result in permanent incontinence. Diabetes: Keeping Feet Healthy Inspect your feet every day for signs of a problem. Diabetes can damage nerves in your feet and cause neuropathy. This condition makes it hard for you to feel injuries or sore spots. Diabetes can also change blood flow, making it harder for small problems, like a blister, to heal properly. In fact, minor injuries can quickly become serious infections that send you to the hospital. Practice self-care to protect your feet and keep them healthy. Take Special Care Inspect your feet daily for problems such as redness, blisters, cracks, dry skin, or numbness. Use a mirror to see the bottoms of your feet. Or, ask for help. Manage your diabetes. Monitor and control your blood sugar. Take all your medications as prescribed. Avoid walking barefoot, even indoors. Wash your feet with warm water and mild soap. Dry well, especially between toes. Dont treat corns or calluses yourself. Talk to your doctor or histologist (a doctor who specializes in foot care) if you need assistance trimming your toenails. Use moisturizing cream or lotion if you have dry skin, but dont use it between toes. Dont use heating pads on your feet. If you have neuropathy, you could get a burn and not feel it. Stop smoking. Smoking restricts blood flow and can make it harder for wounds to heal. Have Regular Checkups Foot problems can develop quickly. So be sure to follow your healthcare teams schedule for regular checkups. During office visits, take off your shoes and socks as soon as you get in the exam room. Ask your healthcare provider to examine your feet for problems. This will make it easier to find and treat small skin irritations before they get worse. Regular checkups can also help keep track of the blood flow and feeling in your feet. If you have neuropathy, you may need to have checkups more often. Wear Proper Footwear Wearing proper footwear is very important. If areas of your feet have been damaged by too much pressure, your healthcare provider may recommend changing your footwear. In some cases, avoiding high heels or tight work boots may be all thats needed. Or, your healthcare provider may recommend special shoes or custom inserts. These help protect your feet and keep existing irritations from getting worse. If you need special footwear, ask your healthcare provider if you qualify for [facility] diabetic shoe program. Make Sure Shoes and Socks Fit Any pair of shoes--new or old--should feel comfortable as soon as you put them on. There shouldnt be any rubbing when you walk. Wear the right shoe for any activity. For instance, a running shoe is designed to keep your feet injury-free while jogging. Buy shoes at the end of the day, when your feet are larger. Make sure they provide support without feeling too loose. Make sure your socks fit, t oo. Wear soft, seamless, well-padded socks for activity. Cotton or microfiber socks are best to help to absorb sweat. To protect your feet, avoid shoes that are open-toed or open-heeled. If you have questions about what kinds of shoes and socks are best, talk to your healthcare team. Get Regular Exercise Regular exercise improves blood flow in your feet. It also increases foot strength and flexibility.Gentle exercises, like walking or riding a stationary bicycle, are best. You can also do special foot exercises. Just be sure to talk with your healthcare provider before starting any exercise program. Also mention if any exercise causes pain, redness, or other signs of foot problems. Note: If you have any kind of break in the skin of your foot or ankle, keep the area clean. Then call your doctor--especially if the area doesnt appear to be healing. [id number] [employer], [address] [place] [address], [place] [address]. All rights reserved. This information is not intended as a substitute for professional medical care. Always follow your healthcare professional's instructions. Dear Terry Smallwood, The care of your Diabetes is very important to us. A yearly diabetic eye exam is important to protect your vision. If youre getting an eye exam done outside of [facility] please tell your Eye Doctor to fax or mail us the results of your Diabetic Eye Exam at your next visit. Our Address and Fax Number are listed below to help. Thank you for helping us to improve your Diabetes Care Our Office Address and Fax Number: Billy Hobbs MD [address] [place] [phone] Diabetic Retinopathy: Evaluating Your Eyes Diabetic retinopathy is a condition that happens when diabetes damages blood vessels in the rear ofthe eye. It can lead to vision loss. To help catch it early, have a complete dilated eye exam at least once a year. During the exam, the eye healthcare provider will review your medical history, examine your eyes, and check your vision. Women who are and have pre-existing type 1 or type 2 diabetes have an increased risk of retinopathy. Women with diabetes should have an eye exam before or in the first trimester. They should continue to be monitored every trimester and for 1 year after delivery, depending on the severity of the retinopathy. The retina is the light-sensitive part of the eye that allows you to see. High blood sugar can damage blood vessels of the retina and cause them to leak or bleed. This damage can lead to abnormal blood vessel growth. This condition is called diabetic retinopathy. You may not have symptoms early in the disease. Later, there may be floaters, blurred vision, or poor night vision. There may also be partial or complete vision loss. Early cases of diabetic retinopathy can be treated by carefully controlling blood sugar, blood pressure, and cholesterol. Surgery or laser treatments may help restore lost vision. Laser surgery can shrink abnormal blood vessels or close ones that are leaking. Medicines injected in the eye can help decrease swelling of the retina. Home care Take all medicines, including insulin or oral diabetic medicine, exactly as prescribed. Follow the diet advised by your healthcare provider. If you have high cholesterol, follow a low-fat, low-cholesterol diet. Monitor blood sugars as advised. Try to achieve your ideal weight. If you smoke, quit smoking. Tobacco use worsens the effect of diabetes on your blood vessels. If you have high blood pressure, consider buying an automatic blood pressure machine. These are available at most pharmacies. Use this to monitor your blood pressure. Report your blood pressure readings to your healthcare provider. Exercise regularly. Follow-up care Follow up with your healthcare provider, or as advised. You must have a complete eye exam at least once a year, more often if needed. Untreated diabetic retinopathy can lead to complete loss of vision. Occupational therapists can help you adapt to any vision loss you have, including learning techniques to safely administer insulin. When to seek medical advice Call your healthcare provider right away if any of these occur. Increasing blurriness or any sudden changes in your vision Sudden flashes of light inside your eye New floaters (small dots or strings that seem to be moving across your field of vision) Eye pain, redness, or discharge from your eyelid New dark spots appearing in your field of vision Halos around lights Dimness of vision Partial or complete loss of vision Women with diabetes should have a complete eye exam before becoming , or as soon as possible when they find out they are . Retinopathy sometimes worsens during . Your eye exam Your eye healthcare provider uses an eye chart and other tools to check your vision. Then he or sheexamines your eyes for signs of disease. You are given eye drops to widen (dilate) your pupils. Youmay have one or more of the following tests: Tonometry to measure fluid pressure inside the eye. Slit lamp exam to allow the healthcare provider to view the structures of your eye. Ultrasound to create an image of the eye using sound waves. Ultrasound may be used if blood is found in the clear gel that fills the eye (vitreous). Ocular coherence tomography (OCT) to create an image of the retina using light waves. This shows ifthere is fluid leaking into certain parts of the eye. It can also measure the thickness of the retina. Fluorescein angiography This test may be done to check the health of the inside lining of the eye (retina). It also checks the tiny blood vessels (capillaries) that carry blood to the retina. During the test: Photographs are taken of the retina. A dye is then injected into the bloodstream through the arm or hand. The dye travels to the capillaries in the eye. More photographs are taken of the retina. The dye causes the capillaries to stand out on the photographs. You may feel brief nausea during the procedure. For a few hours after the test, your skin, eyes, and urine may appear yellow. Talk with your healthcare provider for more information about this test. Date Last Reviewed: 03/28/201619990919-2494 [employer]. [address] [place] [address], [place] [address]. All rights reserved. This information is not intended as a substitute for professional medical care. Always follow your healthcare professional's instructions. documented in this encounter Progress Notes * Macy Lui MD - 09/26/2023 1:34 PM EST Images from the original note were not included. Pre-Operative Medical Evaluation Procedure Information Type of Surgery: left hip replacement Referring Physician / Surgeon: augusto Date of procedure: 10/17/2023 Brief History of Present Illness: Patient feels well today. Review of Systems Constitutional: Negative for activity change, appetite change, chills, fatigue, fever and unexpected weight change. HENT: Negative for congestion, dental problem, ear pain, hearing loss, rhinorrhea, sore throat and trouble swallowing. Eyes: Negative for visual disturbance. Respiratory: Negative for cough, shortness of breath and wheezing. Cardiovascular: Negative for chest pain, palpitations and leg swelling. Gastrointestinal: Negative for abdominal pain, blood in stool, constipation, diarrhea, nausea and vomiting. Endocrine: Negative for polyuria. Genitourinary: Negative for difficulty urinating, dysuria and hematuria. Musculoskeletal: Positive for arthralgias. Skin: Negative for rash. Allergic/Immunologic: Negative for environmental allergies and food allergies. Neurological: Negative for dizziness and headaches. Hematological: Negative for adenopathy. Psychiatric/Behavioral: Negative for dysphoric mood and sleep disturbance. The patient is not nervous/anxious. Medical History Problem List: Congestive heart failure with cardiomyopathy (HCC) (07/26/2023) Sacroiliitis, not elsewhere classified (HCC) (01/24/2023) Chronic atrial fibrillation (HCC) (01/24/2023) Type 2 diabetes mellitus with hemoglobin A1c goal of less than 7.5% (HCC) (07/05/2022) Class 2 severe obesity due to excess calories with serious comorbidity and body mass index (BMI) of 38.0 to 38.9 in adult (05/2022) Diabetes mellitus without complication (HCC) (04/04/2022) Chronic diastolic CHF (congestive heart failure) (HCC) (04/04/2022) Hypertensive heart and kidney disease with chronic diastolic congestive heart failure and stage 3a chronic kidney disease (HCC) (12/19/2021) Acute left-sided low back pain without sciatica (06/14/2021) Hypertensive kidney disease with stage 3a chronic kidney disease (HCC) (04/06/2021) Chronic kidney disease, stage 3a (11/07/2020) Pulmonary hypertension, unspecified (HCC) (05/24/2020) Ankle edema, bilateral (04/25/2020) History of adenomatous polyp of colon (09/16/2019) Sick sinus syndrome (HCC) (03/16/2019) Aortic root enlargement (HCC) (03/16/2019) Screen for colon cancer (11/12/2016) Screening for prostate cancer (11/12/2016) Obstructive sleep apnea of adult (07/20/2016) Personal history of skin cancer (01/26/2016) Abnormal LFTs (08/23/2015) HTN, goal below 140/90 (05/05/2014) Ventral hernia without obstruction or gangrene (01/09/2013) Aortic root dilation (HCC) (07/19/2012) 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 persistent atrial fibrillation (HCC) (07/17/2012) Anticoagulation management encounter (07/17/2012) [facility] current use of anticoagulant therapy (07/17/2012) Abnormal blood chemistry (11/13/2011) Kidney donor (12/29/2010) Family history of diabetes mellitus (12/29/2010) FAMILY HX AAA (02/19/2010) Acute Neutrophilic Dermatosis (02/15/2010) Dyslipidemia, goal LDL below 70 (10/04/2009) Atherosclerosis of [place] coronary artery of [place] heart without angina pectoris (07/17/2009) Personal history of malignant neoplasm of skin (07/08/2007) Actinic keratosis (07/08/2007) Malignant neoplasm of skin of trunk (06/05/2007) EXAMINATION OF PARTICIPANT IN CLINICAL TRIAL - [facility] II (03/14/2006) [facility] Clinical Trial*[id number] (03/14/2006) S/P angioplasty with stent (03/03/2006) Coronary atherosclerosis of [place] coronary artery (02/12/2006) Advance directive discussed with patient (07/05/2005) HTN, goal below 130/80 Dyslipidemia, goal to be determined Family history of ischemic heart disease Cervicalgia F/u of acute posterior myocardial infarction Prediabetes Current Medications Atenolol 50 MG Oral Tablet (Tenormin), TAKE ONE-HALF TABLET BY MOUTH EVERY DAY IN THE MORNING Fluorouracil 5 % External Cream (Efudex), Apply twice daily to face and scalp for 3-4 weeks, followed by Vaseline until healed. Empagliflozin 10 MG Oral Tablet (Jardiance), 10 mg, Oral, Daily(AM) Fluticasone Propionate 50 MCG/ACT Nasal Suspension (Flonase Allergy Relief), 2 [place], Nasal, BID(AM/PM) Furosemide 40 MG Oral Tablet (Lasix), TAKE ONE TABLET BY MOUTH TWICE A DAY Potassium Chloride ER 20 MEQ Oral Tablet Extended Release, TAKE ONE TABLET BY MOUTH TWICE A DAY Rosuvastatin Calcium 20 MG Oral Tablet (Crestor), TAKE 1 TABLET BY MOUTH DAILY Losartan Potassium-HCTZ 100-25 MG Oral Tablet (Hyzaar), TAKE ONE TABLET BY MOUTH EVERY DAY IN THE MORNING metFORMIN HCl 500 MG Oral Tablet (Glucophage), TAKE 1 TABLET BY MOUTH TWICE A DAY WITH MORNING AND EVENING MEALS Tylenol 325 MG Oral Capsule (Acetaminophen), Take by mouth . CPAP, every night at bedtime. Auto 5-20 cm Cyanocobalamin (VITAMIN B 12) 500 MCG TABS, 500 mcg, Oral, Daily(AM) Cholecalciferol (VITAMIN D) 2000 units Tablet, Take 2000 units by mouth once daily nitroglycerin (NITROSTAT) 0.4 MG SUBL, one tab under tongue as needed for chest pain maximum 3 doses Alpha-Lipoic Acid 100 MG TABS, 1 Tablet, Oral, Daily(AM) Aspirin 81 MG Oral Tablet Delayed Release, 81 mg, Oral, HS metroNIDAZOLE, topical, (METROCREAM) 0.75 % cream, Apply topically to affected area 2 times a day. apply to affected area. MULTIVITAMIN PO TABS, 1 Tablet, Oral, Daily(AM) Allergies: Patient has no known allergies. Past Medical History: has a past medical history of Abnormal blood chemistry (11/13/2011), Abnormal LFTs (08/23/2015), Anticoagulation management encounter (07/17/2012), Cervicalgia, Coronary atherosclerosis of [place] coronary artery (02/12/06), F/u of acute posterior myocardial infarction (01/31), Family history of ischemic heart disease, HTN, goal below 130/80, Hyperlipidemia LDL goal < 70, Impaired fasting glucose, Obesity, Class II, BMI 35-39.9, Obstructive sleep apnea of adult (07/20/2016), SULEMA (obstructive sleepapnea), and Prediabetes. Past Surgical History: has a past surgical history that includes STRESS NUCLEAR (EXERCISE) (01/16/06); catheterize left heart thru skin (02/12/06); stress echocardiogram (08/12/09); colonoscopy (01/03/06); stress test (02/04); removal of donor kidney, living; knee arthroscopy/surgery; Colonoscopy, Diagnostic (Rectum) (N/A, 02/18/2017); Coronary Angiography w/left heart Cath (08/28/2019); Colonoscopy, Diagnostic (Rectum) (N/A, 05/09/2020); Right Heart cath w/ O2 sat and CO (05/16/2020); remove cataract, insert lens prosth (Left, 09/20/2020); remove cataract, insert lens prosth (Right, 11/03/2020); Sacroiliac Joint Inject w/Guidance (12/14/2021); and Arthrocent ASP &/or Inj Major Jx/Bursa w/o US (Left, 12/06/2022). Social History: reports that he has never smoked. He has never used smokeless tobacco. He reports current alcohol use. He reports that he does not use drugs. Family History: family history includes Allergies in his father; Arthritis in his brother; Asthma in his brother; CHF in his father; Diabetes in his brother and grandmother (paternal); Glaucoma in his sister; Hypertension in his brother, mother, and sister; [place] at 55/smoke in his brother; No Past Hx in his none; komal den age 65 in his mother. Anesthesia History Type of Anesthesia: General Endotracheal Anesthesia reaction: No History of surgical complications: no Personal history of venous thromboembolic disease: no Physical Exam Vitals: 09/26/23 1311 Temp: 36.5 C (97.7 F) Pulse: 68 Resp: 16 SpO2: 96% BP: 120/66 BMI: 38.34 Physical Exam Constitutional: General: He is not in acute distress. Appearance: Normal appearance. HENT: Head: Normocephalic and atraumatic. Right Ear: Tympanic membrane, ear canal and external ear normal. Left Ear: Tympanic membrane, ear canal and external ear normal. Nose: Nose normal. Mouth/Throat: Mouth: Mucous membranes are moist. Pharynx: Oropharynx is clear. Eyes: Conjunctiva/sclera: Conjunctivae normal. Pupils: Pupils are equal, round, and reactive to light. Cardiovascular: Rate and Rhythm: Normal rate and regular rhythm. Pulses: Normal pulses. Pulmonary: Effort: Pulmonary effort is normal. Breath sounds: Normal breath sounds. Abdominal: General: Bowel sounds are normal. There is no distension. Palpations: Abdomen is soft. Tenderness: There is no abdominal tenderness. Musculoskeletal: Cervical back: Neck supple. Left hip: Decreased range of motion. Right lower leg: No edema. Left lower leg: No edema. Skin: General: Skin is warm and dry. Findings: No rash. Neurological: Mental Status: He is alert and oriented to person, place, and time. Psychiatric: Mood and Affect: Mood normal. Behavior: Behavior normal. Labs reviewed and are significant for: GFR 49.9, INR 2.2, normal UA, normal CBC, EKG by my review is significant for: reviewed 09/11/2023 Atrial fibrillation, left axis deviation , poor R progression, abnormal EKG Normal chest Xray 09/11/23 Surgical Risk Scoring Revised Cardiac Risk Index (RCRI) High-risk type of surgery (examples include vascular and any open intraperitoneal or intrathoracic procedures): 0=No History of ischemic heart disease (history of myocardial infarction or positive exercise test, current compliant of chest pain considered to be secondary to myocardia ischemia, use of nitrate therapy, or ECG with pathological Q waves; do not count prior coronary revascularization procedure unless one of the other criteria for ischemic heart disease is present): 1=Yes History of heart failure: 1=Yes History of cerebrovascular disease: 0=No Diabetes mellitus requiring treatment with insulin: 0=No Preoperative serum creatinine >2.0 mg/dL (177 micromol/L): 0=No Pt has revised cardiac index score of: Two Risk Factors- 2.4% (95% CI: 1.3-3.5) Screening for Obstructive Sleep Apnea (STOP-BANG) Do you Snore loudly? 1=Yes Do you often feel Tired, Fatigued, or Sleep? 0=No Has anyone Observed you Stop Breathing or Choking/Gasping during sleep? 1=Yes Do you have or are you being treated for High Blood Pressure? 1=Yes BMI over 35? 1=Yes Age older than 50? 1=Yes Neck size large? (For males - 17 inches or larger, For females - 16 inches or larger) 0=No Male? 1=Yes Score 0-2:low risk SULEMA, 3-4: intermediate risk of SULEMA, 5-8: high risk SULEMA 6 Assessment and Plan 1. Risk and functional assessment 2. DM type 2 nursing care encounter ([facility]) - DIABETES FOOT EXAM - TELEMEDICINE DIABETIC EYE 3. Preoperative clearance - patient is cleared for surgery 4. Type 2 diabetes mellitus with hemoglobin A1c goal of less than 7.5% ([facility]) - at goal 5. Obstructive sleep apnea of adult - on CPAP 6. Primary osteoarthritis of one hip, left - for surgery 7. Atherosclerosis of [place] coronary artery of [place] heart without angina pectoris - no chest pain - cleared for surgery by cardiology 8. Chronic atrial fibrillation ([facility]) - rate controlled 9. HTN, goal below 140/90 - at goal 10. Chronic diastolic CHF (congestive heart failure) ([facility]) - stable 11. S/P angioplasty with stent Functional Assessment They are able to walk up a flight of stairs, walk two blocks at a moderate pace, do heavy house work like vacuuming, and grocery shop. The patient's functional status is good (greater than 4 METS). 1 MET: 4 METs: 4-10 METs: Can take care of self, such as eat, dress or use the toilet. Can walk to block or go up a flight of steps. Can do heavy house work. Surgical Risk Assessment Patient is intermediate medical risk for the listed procedure. Medication adjustments: Coumadin per [facility] pharmacy Additional consults or testing: no * April Snider LPN - 09/26/2023 1:14 PM EST DM Foot Exam completed today. Provider aware. April Snider LPN Socks and Shoes Removed for Annual Diabetic Foot Screening RIGHT FOOT: No Reddened, Cracking, Or Open Areas Noted. RIGHT Dorsalis Pedis Pulse: Palpable RIGHT Posterior Tibial Pulse: Palpable RIGHT Monofilament:Patient reports difficulty feeling monofilament at Great toe- plantar surface, Third toe-plantar surface, Ball of Foot-base of 3rd toe, and Ball of Foot-base of little toe LEFT FOOT: No Reddened, Cracking or Open Areas Noted. LEFT Dorsalis Pedis Pulse: Palpable LEFT Posterior Tibial Pulse: Palpable LEFT Monofilament:Patient reports difficulty feeling monofilament at Great toe- plantar surface and Third toe-plantar surface Do you need diabetic shoes: No The importance of having a yearly diabetic eye exam has been discussed with patient. Order and/or Referral placed along with patient instructions. Provider made aware. April Snider LPN documented in this encounter Nursing Notes * April Snider LPN - 09/26/2023 1:09 PM EST Chief Complaint Patient presents with pre-op exam Hip surgery 10/[address] Gates documented in this encounter Plan of Treatment Upcoming Encounters Date Type Department Care Team (Late st Contact Info) Description 10/07/2023 8:40 AM EST Anticoagulation Pharmacy, [place] [address] [id number] Pharmacist2, [facility] [place] [address] [address] 11/25/2023 5:00 PM EST Office Visit Family Practice, [place] [address] [phone] Billy Hobbs MD [address] [address] 08/04/2024 10:30 AM EDT Office Visit Cardiology Deric Bledsoe [address] [place] [address] Cesar Dennis DO [address] [place] [address] 09/07/2024 9:20 AM EST Office Visit Dermatology, [place] [address] [facility] [address] [phone] Linda Guzman PA-C [address] [facility] [address] [address] Scheduled Procedures Name Priority Associated Diagnoses Date/Ti me COLONOSCOPY FLEXIBLE PROXIMA L DIAGNOSTIC Recall History of colonic polyps Health Maintenance Due Date Last Done Comments Hepatitis B (1 of 3 - Risk 3-dose series) 2011 GFR 01/29/2023 07/31/2022, 05/2022, 12/20/2021, Additional history exists COVID-19 Vaccine ( season) 2023 08/23/2021, 12/22/2020, 11/23/2020 CKD PHOS USE SMARTSET 54535 07/05/2023 07/05/2022, 1 12/01/2017 HbA1c 07/30/2023 01/28/2023, 09/0 05/2022, 12/20/2021, Additional history exists Diabetic Eye Exam 09/17/2023 09/17/2022, 09/17/2022 Depression Screening 11/26/2023 11/26/2022 Albumin/Creatinine Ratio 01/29/2024 023, 12/20/2021, 08/15/2021, Additional history exists CKD HGB USE SMARTSET 46669 01/29/202401/28, 08/15/2021, 10/11/2020, Additional history exists Diabetic Foot Exam 09/26/2024 09/26/2023, 07/05/2022 COLONOSCOPY-EVERY 5 YRS AGES 18-100 05/09/2025 05/09/2020, 05/09/2020, 02/18/2017, Additional history exists DTaP,Tdap,and Td Vaccines (3 - Td or Tdap) 09/16/2027 09/16/2017, 02/15/2010, 11/06/1995 Pneumococcal Vaccine: 65+ Years Completed 09/16/2019, 09/16/2017, 11/12/2016, Additional history exists Zoster Vaccines Completed 10/30/2020, 06/28, 08/23/2015 Influenza Vaccine (FLU shot) Completed 03/2023, 07/05/2022, 07/25/2021, Additional history exists GARDASIL-HPV IMMUNIZATION SERIES Aged Out No longer eligible based on patient's age to complete this topic MENINGOCOCCAL (MENACTRA/MENVEO) Aged Out No longer eligible based on patient's age to complete this topic documented as of this encounter Medical Devices Implanted Type Area Duplicator Punch Operator Device Identifier Shelf Expiration Date Model / Serial / Lot [employer] Single Use Repositional Clip Implanted:Qty: 1 on 05/09/2020 by Giovani Rico MD at [facility] N/A: Colon 10/27/2022 [id number] / / Description:lot 01K Lens Intraoc 23.0 - [id number] - [id number] Implanted:Qty: 1 on 10/14/2020 by Fransisco Cox MD at OR [facility] Left: Eye [employer] 01/25/2025 [id number] / [id number] / [id number] Lens Intraoc 23.0 - [id number] - [id number] Implanted:Qty: 1 on 11/03/2020 by Fransisco Cox MD at OR [facility] Right: Eye [employer] 12/25/2024 [id number] / [id number] / documented as of this encounter Visit Diagnoses Diagnosis Preoperative clearance- Primary Preoperative examination, unspecified Risk and functional assessment Screening for unspecified condition DM type 2 nursing care encounter (HCC) Type II or unspecified type diabetes mellitus without mention of complication, not stated as uncontrolled Type 2 diabetes mellitus with hemoglobin A1c goal of less than 7.5% (HCC) Obstructive sleep apnea of adult Obstructive sleep apnea (adult) (pediatric) Primary osteoarthritis of one hip, left Atherosclerosis of [place] coronary artery of [place] heart without angina pectoris Chronic atrial fibrillation (HCC) Atrial fibrillation HTN, goal below 140/90 Unspecified essential hypertension Chronic diastolic CHF (congestive heart failure) (HCC) Chronic diastolic heart failure S/P angioplasty with stent Postsurgical percutaneous transluminal coronary angioplasty status documented in this encounter Care Teams Instrument Operator Relationship Specialty Start Date End Date Billy Hobbs MD [address] [id number] PCP - General Family Medicine 12/08/21 documented as of this encounter
--- OUTSIDE RECORDS SUMMARY | 2023-10-17 07:43 | External Medical Summary | Summary of Care ---
Author Name Unknown Organization [facility] Address [address] [facility] [place] [address] Phone [phone] Care Team Providers Care Retort Condenser Attendant Name Role Phone Billy Hobbs MD Primary Care Provider Encounter Details Date Type Department Care Team (Late st Contact Info) Description 10/15/2023 Telephone [facility] [address] [place] [address] Leena Garrett CRNP [address] [place] [address] Allergies No known active allergiesdocumented as of this encounter (statuses as of 10/16/2023) Medications Medication Sig Dispensed Refills Start Date [...] nitroglycerin (NITROSTAT) 0.4 MG SUBLIndications:At herosclerosis of [place] coronary artery of [place] heart without angina pectoris one tab under [...] MG Oral Tablet (Tenormin)Indicati ons:Atherosclerosi s of [place] coronary artery of [place] heart without angina pectoris TAKE ONE-HALF TABLET BY MOUTH EVERY DAY IN THE MORNING 45 Tablet 3 09/23/2023 09/22/2024 Active documented as of this encounter (statuses as of 10/16/2023) Active Problems Problem Noted Date Diagnosed Date [...] cancer 01/26/2016 Overview: Basal Cell Carcinoma R hindu - 2006 BCC - L shoulder 2007 BCC - R upper back - 2012 BCC -Left lateral eyebrow - 2016 BCC - Right hindu - 2016 HTN, goal below 140/90 05/05/2014 [...] P 61 08/27 BP 147/85 P 56 11/1 BP 139/74 P 56 11/2 BP 145/75 P 63 11/4 BP 148/83 P 71 11/5 BP 123/74 P 68 11/7 BP 135/81 P 68 119 BP 136/71 P 71 11/10 BP 132/69 P 63 Ventral hernia without [...] by US 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 0 07/17/2012 Overview: ICD-10 update of inactive term 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 Family history of diabetes mellitus 12/29/2010 FAMILY HX AAA 02/19/2010 Overview: 03/2017 Us neg for AAA Us neg 2006 Dyslipidemia, goal LDL below 70 10/04/2009 Overview: 06/27/2021 will repeat before July on crestor 20 Last Assessment & Plan: will repeat before July on crestor 20 Atherosclerosis of [place] co ronary artery of [place] heart without angina pectoris 07/17/2009 Overview: 08/28/2019 [...] Overview: 02/17/2018 Has had Mohs bitemporal at [facility] Basal Cell Carcinoma R hindu - 2006 BCC - L shoulder 2007 BCC - R upper back - 2012 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 Actinic keratosis 07/08/2007 S/P angioplasty with stent 03/03/2006 Overview: RCA 01/31 Advance directive discussed with patient 005 Overview: 11/12/2016 pt confirms promises to bring . 07/06/2016 Discussed advance directive and living will 1 POA 2 POA son Jorge [phone] POAson Christian Smallwood Given brochure No, Advance Directive brochure given to patient. documented as of this encounter (statuses as of 10/16/2023) Resolved Problems Problem Noted Date Diagnosed Date [...] ANTIPROLIFERATIVE FOR RESTENOSIS II TRIAL REMI # [id number] PI: Prashant Fletcher MD SC: Erika Cohn RN, BSN Costar II Clinical Trial*[id number] 03/14/2006 03/21/2011 Overview: Renamed Per Clinical Trials Billing Project. COSTAR II: COBALT CHROMIUM STENT WITH ANTIPROLIFERATIVE FOR RESTENOSIS II TRIAL REMI # [id number] PI: Prashant Fletcher MD SC: Erika Cohn, RN, BSN Coronary atherosclerosis of [place] coronary artery 02/12/2006 07/17/2009 Overview: S/P stent RCA HTN, goal below 130/80 05/05 Overview: Hyzaar, atenolol Dyslipidemia, goal to be determined 10/04/2009 Overview: Per Lipid Taxonomy. Family history of ischemic heart disease 07/17/2009 Cervicalgia 12/29/2010 F/u of acute posterior myocardial infarction 05/19/2009 Overview: Modified by Acute [place] Protocol #5. Prediabetes 07/05/2022 Overview: Hemoglobin AIC Results: HEMOGLOBIN, A1C(%) Christiano Dt/Tm Resulted Value Status 11/08/11 7:33A 11/08/11 5.6 FINAL 01/26/11 7:25A 01/26/11 5.6 FINAL 02/27/06 7:02A 02/27/06 5.8 FINAL Glucose Results: GLUCOSE(mg/dL) Christiano Dt/Tm Resulted Value Status 06/27/15 7:10A 06/27/15 113 FINAL 05/03/14 7:12A 05/03/14 114 FINAL 09/01/13 7:11A 09/01/13 113 FINAL documented as of this encounter (statuses as of 10/16/2023) Immunizations Name Administration Dates Next Due COVID-19 mRNA, LNP-s, No Pre serve, 2-Dose Series (Moderna) 12/22/2020,11/23/2020 COVID-19, mRNA, LNP-s, PF, B ooster, 100mcg/0.5mg (Moderna) 08/23/2021 Pneumococcal Conjugate Vacc, 13 Valent (Prevnar) 09/16/2017,11/12/2016 Pneumococcal Polysaccharide PPV23 (Pneumovax) 09/16/2019,11/19/2006 Seasonal Influenza, PF, 6 M & above, IM , (FluLaval or Fluzone) 09/01/2018 Seasonal Influenza, Quadriva lent Hd (Fluzone [...] on file documented as of this encounter Plan of Treatment Upcoming Encounters Date Type Department Care Team (Late st Contact Info) Description 10/31/2023 8:40 AM EST Anticoagulation Pharmacy, [place] [address] [phone] Pharmacist2, [facility] [place] [address] [address] 11/25/2023 5:00 PM EST Office Visit Family Practice, [place] [address] [phone] Billy Hobbs MD [address] [id number] 08/04/2024 10:30 AM EDT Office Visit Cardiology [facility] [address] [address] Cesar Dennis DO 09/07/2024 9:20 AM EST Office Visit Dermatology, [facility] [place] [address] [address] Linda Guzman PA-C [address] [address] Scheduled Procedures Name Priority Associated Diagnoses Date/Ti me COLONOSCOPY FLEXIBLE PROXIMA L DIAGNOSTIC Recall History of colonic polyps Health Maintenance Due Date Last Done Comments Hepatitis B (1 of 3 - Risk 3-dose series) 2011 GFR 01/29/2023 07/31/2022, 0 05/2022, 12/20/2021, Additional history exists COVID-19 Vaccine ( - 2022- season) 2023 08/23/2021, 12/22/2020, 11/23/2020 CKD PHOS USE SMARTSET 45516 07/05/2023 07/05/2022, 1 12/01/2017 HbA1c 07/30/2023 01/28/2023, 0 05/2022, 12/20/2021, Additional history exists Depression Screening 11/26/2023 11/26/2022 Albumin/Creatinine Ratio 01/29/2024 023, 12/20/2021, 08/15/2021, Additional history exists CKD HGB USE SMARTSET 28659 01/29/202401/28, 08/15/2021, 10/11/2020, Additional history exists Diabetic Eye Exam 09/26/2024 09/26/2023, , 09/17/2022 Diabetic Foot Exam 09/26/2024 09/26/2023, 07/05/2022 COLONOSCOPY-EVERY [...] this encounter Medical Devices Implanted Type Area Planimeter Operator Device Identifier Shelf Expiration Date Model / Serial / Lot Olympus Single Use Repositional Clip Implanted:Qty: 1 on 05/09/2020 by Giovani Rico MD at ENDOSCOPY [facility] N/A: Colon 10/27/2022 [id number] / / Description:lot 01K Lens Intraoc 23.0 - [id number] - [id number] Implanted:Qty: 1 on 10/14/2020 by Fransisco Cox MD at OR [facility] Left: Eye [employer] LOMB 01/25/2025 [id number] / [id number] / [id number] Lens Intraoc 23.0 - [id number] - [id number] Implanted:Qty: 1 on 11/03/2020 by Fransisco Cox MD at OR [facility] Right: Eye BAUSCH & LOMB 12/25/2024 [id number] / [id number] / documented as of this encounter Care Teams Retort Condenser Attendant Relationship Specialty Start Date End Date Billy Hobbs MD [address] [phone] PCP - General Family Medicine 12/08/21 documented as of this encounter
--- OUTSIDE RECORDS SUMMARY | 2023-10-17 07:43 | External Medical Summary ---
Author Name Unknown Address Unknown Organization : Laboratory Report Ordering Provider Test Date Status EDUARD MARIA 10/07/2023 08:46:58 Final Therapeutic ranges for non-o perative patients:
Prophylaxsis/treatment of DVT: (Range:2.0-3.0)
Treatment of pulmonary embolism:(Range:2.0-3.0)
Prevention of systemic embolism from:
-tissue heart valves
-acute myocardial infarction
-valvular heart disease
-atrial fibrillation
(Range: 2.0-3.0)
Mechanical prosthetic valves: (Range: 2.5-3.5) Observation Date Value Abnormality Reference (Units ) Status INR in Capillary blood by Coagulation assay 10/07/2023 08:46:58 2.2 (INR) Final Performing Location
--- OUTSIDE RECORDS SUMMARY | 2023-10-17 07:43 | External Medical Summary | Summary of Care ---
Author Name Unknown Organization [facility] Address [address] [place] [address] Phone [phone] Care Team Providers Care Sales Leader Name Role Phone Billy Hobbs MD Primary Care Provider Reason for Visit * Reason Comments Medication Refill Encounter Details Date Type Department Care Team (Late st Contact Info) Description [facility] [address] [facility] [place] [phone] Billy Hobbs MD [address] [place] [address] Atherosclerosis of [place] coronary artery of [place] heart without angina pectoris Allergies No known active allergiesdocumented as of this encounter (statuses as of 09/23/2023) Medications Medication Sig Dispensed Refills Start Date End Date Status MULTIVITAMIN PO TABS Take 1 Tab by mouth daily. 0 0 03/04/2006 Active metroNIDAZOLE, topical, (METROCREAM) 0.75 % creamIndications :Rosacea Apply topically to affected area 2 times [...] 3 06/15/2019 Active nitroglycerin (NITROSTAT) 0.4 MG SUBLIndications: Atherosclerosis of [place] coronary artery of [place] heart without angina pectoris one tab under [...] Active Rosuvastatin Calcium 20 MG Oral Tablet (Crestor)Indicat ions:Dyslipidemi a, goal LDL below 70 TAKE 1 TABLET BY MOUTH DAILY 90 Tablet 3 03/13/2023 03/12/2024 Active Losartan Potassium-HCTZ 100-25 MG Oral Tablet (Hyzaar) TAKE ONE TABLET BY MOUTH EVERY DAY IN THE MORNING 90 Tablet 3 02/25/2023 02/25/2024 Active metFORMIN HCl 500 MG Oral Tablet (Glucophage)Rachel cations:Prediabe soy TAKE 1 TABLET BY MOUTH TWICE A [...] 07/26/2023 Active Fluorouracil 5 % External Cream (Efudex)Indicati ons:AK (actinic keratosis) Apply twice daily to face and scalp for 3-4 weeks, followed by Vaseline until healed. 40 g 1 09/05/2023 Active Atenolol 50 MG Oral Tablet (Tenormin)Indica tions:Atheroscle rosis of [place] coronary artery of [place] heart without angina pectoris TAKE ONE-HALF TABLET BY MOUTH EVERY DAY IN THE MORNING 45 Tablet 3 09/23/2023 09/22/2024 Active Atenolol 50 MG Oral Tablet (Tenormin)Indica tions:Atheroscle rosis of [place] coronary artery of [place] heart without angina pectoris TAKE ONE-HALF TABLET BY MOUTH EVERY DAY IN THE MORNING 45 Tablet 1 02/25/2023 09/23/2023 Discontinue d(Refill) documented as of this encounter (statuses as of 09/23/2023) Active Problems Problem Noted Date Diagnosed Date [...] cancer 01/26/2016 Overview: Basal Cell Carcinoma R scientology - 2006 BCC - L shoulder 2007 BCC - R upper back - 2012 BCC -Left lateral eyebrow - 2016 BCC - Right scientology - 2016 HTN, goal below 140/90 05/05/2014 [...] P 61 08/27 BP 147/85 P 56 08/28 BP 139/74 P 56 08/29 BP 145/75 P 63 11 BP 148/83 P 71 11 BP 123/74 P 68 09/03 BP 135/81 P 68 09/05 BP 136/71 P 71 09/06 BP 132/69 [...] by US 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 0 07/17/2012 Overview: ICD-10 update of inactive term 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 Family history of diabetes mellitus 12/29/2010 FAMILY HX AAA 02/19/2010 Overview: 03/2017 Us neg for AAA Us neg 2006 Dyslipidemia, goal LDL below 70 10/04/2009 Overview: 06/27/2021 will repeat before July on crestor 20 Last Assessment & Plan: will repeat before July on crestor 20 Atherosclerosis of [place] co ronary artery of [place] heart without angina pectoris 07/17/2009 Overview: 08/28/2019 [...] Overview: 02/17/2018 Has had Mohs bitemporal at [facility] Basal Cell Carcinoma R scientology - 2006 BCC - L shoulder 2007 BCC - R upper back - 2012 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 Actinic keratosis 07/08/2007 S/P angioplasty with stent 03/03/2006 Overview: RCA 01/31 Advance directive discussed with patient 005 Overview: 11/12/2016 pt confirms promises to bring . 07/06/2016 Discussed advance directive and living will 1 POA 2 POA son Jorge [phone] POAson Christian Smallwood Given brochure No, Advance Directive brochure given to patient. documented as of this encounter (statuses as of 09/23/2023) Resolved Problems Problem Noted Date Diagnosed Date [...] ANTIPROLIFERATIVE FOR RESTENOSIS II TRIAL REMI # [id number] PI: Prashant Fletcher MD SC: Erika Cohn RN, BSN Costar II Clinical Trial*[id number] 03/14/2006 03/21/2011 Overview: Renamed Per Clinical Trials Billing Project. COSTAR II: COBALT CHROMIUM STENT WITH ANTIPROLIFERATIVE FOR RESTENOSIS II TRIAL REMI # [id number] PI: Prashant Fletcher MD SC: Erika Cohn, MARIANELA, BSN Coronary atherosclerosis of [place] coronary artery 02/12/2006 07/17/2009 Overview: S/P stent RCA HTN, goal below 130/80 05/05 Overview: Hyzaar, atenolol Dyslipidemia, goal to be determined 10/04/2009 Overview: Per Lipid Taxonomy. Family history of ischemic heart disease 07/17/2009 Cervicalgia 12/29/2010 F/u of acute posterior myocardial infarction 05/19/2009 Overview: Modified by Acute [place] Protocol #5. Prediabetes 07/05/2022 Overview: Hemoglobin AIC Results: HEMOGLOBIN, A1C(%) Christiano Dt/Tm Resulted Value Status 11/08/11 7:33A 11/08/11 5.6 FINAL 01/26/11 7:25A 01/26/11 5.6 FINAL 02/27/06 7:02A 02/27/06 5.8 FINAL Glucose Results: GLUCOSE(mg/dL) Christiano Dt/Tm Resulted Value Status 06/27/15 7:10A 06/27/15 113 FINAL 05/03/14 7:12A 05/03/14 114 FINAL 09/01/13 7:11A 09/01/13 113 FINAL documented as of this encounter (statuses as of 09/23/2023) Immunizations Name Administration Dates Next Due COVID-19 [...] on file documented as of this encounter Miscellaneous Notes * Telephone Encounter - Comfort Pulido DO - 09/23/2023 1:22 PM EST Signed Prescriptions: Disp Refills Atenolol 50 MG Oral Tablet (Tenormin) 45 Tab*3 Sig: TAKE ONE-HALF TABLET BY MOUTH EVERY DAY IN THE MORNING Authorizing Provider: COMFORT PULIDO * Telephone Encounter - Cinthia Pelayo LPN - 09/23/2023 1:19 PM ESTPending Prescriptions: Disp Refills Atenolol 50 MG Oral Tablet (Tenormin) 45 Tab*3 Sig: TAKE ONE-HALF TABLET BY MOUTH EVERY DAY IN THE MORNING * Telephone Encounter - Cinthia Pelayo LPN - 09/23/2023 1:19 PM EST Pending Prescriptions: Disp Refills Atenolol 50 MG Oral Tablet (Tenormin) 45 Tab*3 Sig: TAKE ONE-HALF TABLET BY MOUTH EVERY DAY IN THE MORNING documented in this encounter Plan of Treatment Upcoming Encounters Date Type Department Care Team (Late st Contact Info) Description 09/26/2023 1:20 PM EST Office Visit [place] [address] [address] [phone] Macy Lui MD [address] [address] 10/07/2023 8:40 AM EST Anticoagulation Pharmacy, [place] [address] [address] [address] Pharmacist2, [place] [address] [address] [address] 11/25/2023 5:00 PM EST Office Visit [place] [address] [address] [phone] Billy Hobbs MD [address] [address] 08/04/2024 10:30 AM EDT Office Visit Cardiology [place] [address] [place] [address] [address] Comfort Pulido DO [address] [place] [address] [address] 09/07/2024 9:20 AM EST Office Visit Dermatology, [place] [address] [address] Linda Guzman PA-C [address] [address] Scheduled Procedures Name Priority Associated Diagnoses Date/Ti me COLONOSCOPY FLEXIBLE PROXIMA L DIAGNOSTIC Recall History of colonic polyps Health Maintenance Due Date Last Done Comments Hepatitis B (1 of 3 - Risk 3-dose series) 2011 GFR 01/29/2023 07/31/2022, 05/2022, 12/20/2021, Additional history exists COVID-19 Vaccine ( season) 2023 08/23/2021, 12/22/2020, 11/23/2020 CKD PHOS USE SMARTSET 37542 07/05/2023 07/05/2022, 1 12/01/2017 Diabetic Foot Exam 07/05/2023 07/05/2022 HbA1c 07/30/2023 01/28/2023, 05/2022, 12/20/2021, Additional history exists Diabetic Eye Exam 09/17/2023 09/17/2022, 09/17/2022 Depression Screening 11/26/2023 11/26/2022 Albumin/Creatinine Ratio 01/29/2024 023, 12/20/2021, 08/15/2021, Additional history exists CKD HGB USE SMARTSET 34448 01/29/202401/28, 08/15/2021, 10/11/2020, Additional history exists COLONOSCOPY-EVERY 5 YRS AGES 18-100 05/09/2025 05/09/2020, [...] this encounter Medical Devices Implanted Type Area Intelligence Applications Device Identifier Shelf Expiration Date Model / Serial / Lot Olympus Single Use Repositional Clip Implanted:Qty: 1 on 05/09/2020 by Giovani Rico MD at ENDOSCOPY [facility] N/A: Colon 10/27/2022 HX-[id number] / / Description:lot 01K Lens Intraoc 23.0 - [id number] - [id number] Implanted:Qty: 1 on 10/14/2020 by Fransisco Cox MD at OR [facility] Left: Eye BAUSCH [employer] LOMB 01/25/2025 [id number] / [id number] / [id number] Lens Intraoc 23.0 - [id number] - [id number] Implanted:Qty: 1 on 11/03/2020 by Fransisco Cox MD at OR [facility] Right: Eye BAUSCH & LOMB 12/25/2024 [id number] / [id number] / documented as of this encounter Visit Diagnoses Diagnosis Atherosclerosis of [place] coronary artery of burns [place] heart without angina pectoris documented in this encounter Care Teams Sales Leader Relationship Specialty Start Date End Date Billy Hobbs MD [address] [phone] PCP - General Family Medicine 12/08/21 documented as of this encounter
--- OUTSIDE RECORDS SUMMARY | 2023-10-17 07:43 | External Medical Summary | Summary of Care ---
Author Name Unknown Organization [facility] Address [address] [facility] [address] Phone [phone] Care Team Providers Care Radio Host Name Role Phone Billy Hobbs MD Primary Care Provider Reason for Visit * Reason Comments Dosage Adjustment In Person (Anticoag Cl inic) Encounter Details Date Type Department Care Team (Late st Contact Info) Description 10/07/2023 8:40 AM [facility] Anticoagulation Pharmacy, [address] [place] [address] Pharmacist2, [address] [place] [address] 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 persistent atrial fibrillation (HCC)*; Anticoagulation management encounter; group home current use of anticoagulant therapy Allergies No known active allergiesdocumented as of this encounter (statuses as of 10/07/2023) Medications Medication Sig Dispensed Refills Start Date [...] nitroglycerin (NITROSTAT) 0.4 MG SUBLIndications:At herosclerosis of [place] coronary artery of [place] heart without angina pectoris one tab under [...] MG Oral Tablet (Tenormin)Indicati ons:Atherosclerosi s of [place] coronary artery of [place] heart without angina pectoris TAKE ONE-HALF TABLET BY MOUTH EVERY DAY IN THE MORNING 45 Tablet 3 09/23/2023 09/22/2024 Active documented as of this encounter (statuses as of 10/07/2023) Active Problems Problem Noted Date Diagnosed Date [...] cancer 01/26/2016 Overview: Basal Cell Carcinoma R baptism - 2006 BCC - L shoulder 2007 BCC - R upper back - 2012 BCC -Left lateral eyebrow - 2016 BCC - Right baptism - 2016 HTN, goal below 140/90 05/05/2014 [...] P 61 08/27 BP 147/85 P 56 11 BP 139/74 P 56 11 BP 145/75 P 63 11/4 BP 148/83 P 71 11/5 BP 123/74 P 68 11/7 BP 135/81 P 68 / BP 136/71 P 71 11 BP 132/69 P 63 Ventral hernia without [...] by US 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 persistent atrial fibrillation 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 0 07/17/2012 Overview: ICD-10 update of inactive term 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 Family history of diabetes mellitus 12/29/2010 FAMILY HX AAA 02/19/2010 Overview: 03/2017 Us neg for AAA Us neg 2006 Dyslipidemia, goal LDL below 70 10/04/2009 Overview: 06/27/2021 will repeat before July on crestor 20 Last Assessment & Plan: will repeat before July on crestor 20 Atherosclerosis of [place] co ronary artery of [place] heart without angina pectoris 07/17/2009 Overview: 08/28/2019 [...] Overview: 02/17/2018 [place] Basal Cell Carcinoma R baptism - 2006 BCC - L shoulder 2007 BCC - R upper back - 2012 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 Actinic keratosis 07/08/2007 S/P angioplasty with stent 03/03/2006 Overview: RCA 01/31 Advance directive discussed with patient 005 Overview: 11/12/2016 pt confirms promises to bring . 07/06/2016 Discussed advance directive and living will 1 POA 2 POA son Jorge [phone] POAson Christian Smallwood Given brochure No, Advance Directive brochure given to patient. documented as of this encounter (statuses as of 10/07/2023) Resolved Problems Problem Noted Date Diagnosed Date [...] ANTIPROLIFERATIVE FOR RESTENOSIS II TRIAL REMI # [id number] PI: Prashant Fletcher MD SC: Erika Cohn RN, BSN Costar II Clinical Trial*[id number] 03/14/2006 03/21/2011 Overview: Renamed Per Clinical Trials Billing Project. COSTAR II: COBALT CHROMIUM STENT WITH ANTIPROLIFERATIVE FOR RESTENOSIS II TRIAL REMI # [id number] PI: Prashant Fletcher MD SC: Erika Cohn RN, BSN Coronary atherosclerosis of [place] coronary artery 02/12/2006 07/17/2009 Overview: S/P stent RCA HTN, goal below 130/80 05/05 Overview: Hyzaar, atenolol Dyslipidemia, goal to be determined 10/04/2009 Overview: Per Lipid Taxonomy. Family history of ischemic heart disease 07/17/2009 Cervicalgia 12/29/2010 F/u of acute posterior myocardial infarction 05/19/2009 Overview: Modified by Acute [place] Protocol #5. Prediabetes 07/05/2022 Overview: Hemoglobin AIC Results: HEMOGLOBIN, A1C(%) Christiano Dt/Tm Resulted Value Status 11/08/11 7:33A 11/08/11 5.6 FINAL 01/26/11 7:25A 01/26/11 5.6 FINAL 02/27/06 7:02A 02/27/06 5.8 FINAL Glucose Results: GLUCOSE(mg/dL) Christiano Dt/Tm Resulted Value Status 06/27/15 7:10A 06/27/15 113 FINAL 05/03/14 7:12A 05/03/14 114 FINAL 09/01/13 7:11A 09/01/13 113 FINAL documented as of this encounter (statuses as of 10/07/2023) Immunizations Name Administration Dates Next Due COVID-19 [...] on file documented as of this encounter Progress Notes * Cinthia Mensah RPh - 10/07/2023 8:37 AM EST Medication Therapy Disease Management - Anticoagulation Patient: Terry Smallwood | : 1950 Subjective Patient-Reported Symptoms: Patient Findings Positives: Upcoming invasive procedure (See below - hip replacement surgery) Negatives: Signs/symptoms of thrombosis, Signs/symptoms of bleeding, Change in health, Change in alcohol use, Change in activity, Missed doses, Extra doses, Change in medications, Change in diet/appetite, Bruising Objective Current Warfarin Dose As of 10/07/2023 Warfarin maintenance plan: 7.5 mg (5 mg x 1.5) every Sun, Tue, Khushbu; 10 mg (5 mg x 2) all other days INR Result As of 10/07/2023 INR goal: 2.0-3.0 INR used for dosin.2 (10/07/2023) Assessment & Plan Warfarin Plan As of 10/07/2023 Full warfarin instructions: 7.5 mg every Sun, Tue, Khushbu; 10 mg all other days No change documented: Cinthia Mensah RPh Next INR check: 10/31/2023 Repeat PT/INR in 3 week(s) Weekly dose: not changed Additional Dosing Information: Description Patient is having a hip replacement on 10/17. Diagosis for coumadin therapy is atrial fibrillation.No hx of recent DVT, PE, MVR, MS or CVA. CHADS2-VASC score of 5 (age, CAD, CHF-diastolic, DM, HTN).Patient held coumadin previously without incident. Patient will take their last dose of coumadin 10/11, then restart coumadin the evening of the procedure with 17.5 mg for 2 days, then resume previous dose, 7.5mg SuTuTh, 10mg all other days. Repeat pt/inr 2 weeks after procedure. Cinthia Mensah [facility] Clinical Pharmacist 10/07/2023, 8:37 AM documented in this encounter Plan of Treatment Upcoming Encounters Date Type Department Care Team (Late st Contact Info) Description 10/31/2023 8:40 AM EST Anticoagulation Pharmacy, [place] [address] [address] [address] Pharmacist2, [facility] [place] [address] [address] 11/25/2023 5:00 PM EST Office Visit Family [facility] [place] [address] [phone] Billy Hobbs MD [address] [address] 08/04/2024 10:30 AM EDT Office Visit Cardiology Deric Bledsoe [address] [place] [address] Cesar Dennis DO [address] [address] 09/07/2024 9:20 AM EST Office Visit Dermatology, Deric Little [address] [address] Linda Guzman PA-C [address] [address] Scheduled Procedures Name Priority Associated Diagnoses Date/Ti me COLONOSCOPY FLEXIBLE PROXIMA L DIAGNOSTIC Recall History of colonic polyps Health Maintenance Due Date Last Done Comments Hepatitis B (1 of 3 - Risk 3-dose series) 2011 GFR 01/29/2023 07/31/2022, 05/2022, 12/20/2021, Additional history exists COVID-19 Vaccine ( season) 2023 08/23/2021, 12/22/2020, 11/23/2020 CKD PHOS USE SMARTSET 87738 07/05/2023 07/05/2022, 1 12/01/2017 HbA1c 07/30/2023 01/28/2023, 05/2022, 12/20/2021, Additional history exists Diabetic Eye Exam 09/17/2023 09/17/2022, 09/17/2022 Depression Screening 11/26/2023 11/26/2022 Albumin/Creatinine Ratio 01/29/2024 04 023, 12/20/2021, 08/15/2021, Additional history exists CKD HGB USE SMARTSET 29702 01/29/202401/28, 08/15/2021, 10/11/2020, Additional history exists Diabetic [...] this encounter Medical Devices Implanted Type Area Material Man Device Identifier Shelf Expiration Date Model / Serial / Lot Olympus Single Use Repositional Clip Implanted:Qty: 1 on 05/09/2020 by Giovani Rico MD at ENDOSCOPY [facility] N/A: Colon 10/27/2022 [id number] / / Description:lot 01K Lens Intraoc 23.0 - [id number] - [id number] Implanted:Qty: 1 on 10/14/2020 by Fransisco Cox MD at OR [facility] Left: Eye [employer]OMB 01/25/2025 [id number] / [id number] / [id number] Lens Intraoc 23.0 - [id number] - [id number] Implanted:Qty: 1 on 11/03/2020 by Fransisco Cox MD at OR [facility] Right: Eye BAUSCH [employer] LOMB 12/25/2024 [id number] / [id number] / documented as of this encounter Procedures Procedure Name Priority Date/Time Associated Diagnosis Comments INR FINGERSTICK, POINT OF CARE STAT 10/07/2023 8:46 AM EST 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 persistent atrial fibrillation (HCC) Anticoagulation 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 documented in this encounter Results * INR FINGERSTICK, POINT OF CARE (10/07/2023 8:46 AM EST) Fingerstick INR 2.2 INR 8:48 AM EST [facility] 45-01 Blood 10/07/2023 8:46 AM EST 10/07/2023 8:48 AM EST Narrative LABORATORY BEBEREDSTONEMann 45-01 - 10/07/2023 8:48 AM EST Therapeutic ranges for non-operative patients: Prophylaxsis/treatment of DVT: (Range:2.0-3.0) Treatment of pulmonary embolism:(Range:2.0-3.0) Prevention of systemic embolism from: -tissue heart valves -acute myocardial infarction -valvular heart disease -atrial fibrillation (Range: 2.0-3.0) Mechanical prosthetic valves: (Range: 2.5-3.5) Cinthia Mensah 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
--- OUTSIDE RECORDS SUMMARY | 2023-10-17 07:43 | External Medical Summary | Summary of Care ---
Author Name Unknown Organization [facility] Address [address] [facility] [address] Phone [phone] Care Team Providers Care Comb Winder Name Role Phone Billy Hobbs MD Primary Care Provider Reason for Visit * Reason Onset Date Comments Scan To Read 10/15/2023 Diabetic eye exa m Encounter Details Date Type Department Care Team (Late st Contact Info) Description 10/15/2023 Telephone [facility] [address] [place] [address] Macy Lui MD [address] [place] [address] Scan To Read (Diabetic eye exam) Allergies No known active allergiesdocumented as of [...] nitroglycerin (NITROSTAT) 0.4 MG SUBLIndications:At herosclerosis of [place] coronary artery of [place] heart without angina pectoris one tab under [...] MG Oral Tablet (Tenormin)Indicati ons:Atherosclerosi s of [place] coronary artery of [place] heart without angina pectoris TAKE ONE-HALF TABLET [...] 2.00 FINAL 05/03/14 7:12A 05/03/14 1.13 FINAL 3/15/13 3:08P 01/09/13 1.16 FINAL Obstructive sleep apnea [...] cancer 01/26/2016 Overview: Basal Cell Carcinoma R rastafarian - 2006 BCC - L shoulder 2007 BCC - R upper back - 2012 BCC -Left lateral eyebrow - 2016 BCC - Right rastafarian - 2016 HTN, goal below 140/90 05/05/2014 [...] P 56 08/28 BP 139/74 P 56 11 BP 145/75 P 63 11/4 BP 148/83 P 71 11/5 BP 123/74 P 68 11/7 BP 135/81 P 68 11/ BP 136/71 P 71 11/ BP 132/69 P 63 Ventral hernia without [...] by US 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 persistent atrial fibrillation 06/29 longterm current use of anticoagulant therapy 0 07/17/2012 Overview: ICD-10 update of inactive term 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 Family history of diabetes mellitus 12/29/2010 FAMILY HX AAA 02/19/2010 Overview: 03/2017 Us neg for AAA Us neg 2006 Dyslipidemia, goal LDL below 70 10/04/2009 Overview: 06/27/2021 will repeat before July on crestor 20 Last Assessment & Plan: will repeat before July on crestor 20 Atherosclerosis of [place] co ronary artery of [place] heart without angina pectoris 07/17/2009 Overview: 08/28/2019 [...] Overview: 02/17/2018 [place] [facility] Basal Cell Carcinoma R rastafarian - 2006 BCC - L shoulder 2007 BCC - R upper back - 2012 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 Actinic keratosis 07/08/2007 S/P angioplasty with stent 03/03/2006 Overview: RCA 01/31 Advance directive discussed with patient 005 Overview: 11/12/2016 pt confirms promises to bring . 07/06/2016 Discussed advance directive and living will 1 POA 2 POA son Jorge [phone] POAson Christian Smallwood Given brochure No, [...] ANTIPROLIFERATIVE FOR RESTENOSIS II TRIAL REMI # [id number] PI: Prashant Fletcher MD SC: Erika Cohn RN, BSN Costar II Clinical Trial*[id number] 03/14/2006 03/21/2011 Overview: Renamed Per Clinical Trials Billing Project. COSTAR II: COBALT CHROMIUM STENT WITH ANTIPROLIFERATIVE FOR RESTENOSIS II TRIAL REMI # [id number] PI: Prashant Fletcher MD SC: Erika Cohn RN, BSN Coronary atherosclerosis of [place] coronary artery 02/12/2006 07/17/2009 Overview: S/P stent RCA HTN, goal below 130/80 05/05 Overview: Hyzaar, atenolol Dyslipidemia, goal to be determined 10/04/2009 Overview: Per Lipid Taxonomy. Family history of ischemic heart disease 07/17/2009 Cervicalgia 12/29/2010 F/u of acute posterior myocardial infarction 05/19/2009 Overview: Modified by Acute [place] Protocol #5. Prediabetes 07/05/2022 Overview: Hemoglobin AIC [...] encounter Miscellaneous Notes * Telephone Encounter - Bill Ryder MD - 10/16/2023 7:16 AM EST Retinal Scan Imaging [place] [id number] Retinal Scan Interpretation: There is no retinopathy in both eyes There is cupping in both eyes which should be evaluated. Diabetes Retinal Imaging Care Plan: The retinal scan results are abnormal - I will forward this encounter to the Ophthalmology DM Letter Pool [[id number]], they will send an abnormal retinal scan letter to the patient. I will forward thisencounter to the ordering provider. Patient prefers to be seen at [facility] for follow-up evaluation. This encounter will be sent to Ophthalmology scheduling services, please schedule the patient within 3 months. Bill Ryder MD 10/16/2023 7:16 AM * Telephone Encounter - April Snider LPN - 10/15/2023 5:48 PM EST A Diabetic Telemed Eye image was taken and requires your interpretation for Dr Lui. Please check your inbasket for image. Patient prefers to be seen at [facility] if a follow-up appointment is needed. documented in this encounter Plan of Treatment Upcoming Encounters Date Type Department Care Team (Late st Contact Info) Description 10/31/2023 8:40 AM EST Anticoagulation Pharmacy, [place] [address] [address] Pharmacist2, [facility] [place] [address] [address] 11/25/2023 5:00 PM EST Office Visit Family Practice, [place] [address] [phone] Billy Hobbs MD [address] [address] 08/04/2024 10:30 AM EDT Office Visit Cardiology Deric Bledsoe [address] [address] Cesar Dennis, 09/07/2024 9:20 AM EST Office Visit Dermatology, Deric Little [address] [address] Linda Guzman, [facility] [address] [address] Scheduled Procedures Name Priority Associated Diagnoses Date/Ti me COLONOSCOPY FLEXIBLE PROXIMA L DIAGNOSTIC Recall History of colonic polyps Health Maintenance Due Date Last Done Comments Hepatitis B (1 of 3 - Risk 3-dose series) 2011 GFR 01/29/2023 07/31/2022, 0 05/2022, 12/20/2021, Additional history exists COVID-19 Vaccine ( season) 2023 08/23/2021, 12/22/2020, 11/23/2020 CKD PHOS USE SMARTSET 26744 07/05/2023 07/05/2022, 1 12/01/2017 HbA1c 07/30/2023 01/28/2023, 05/2022, 12/20/2021, Additional history exists Depression Screening 11/26/2023 11/26/2022 Albumin/Creatinine Ratio 01/29/2024 023, 12/20/2021, 08/15/2021, Additional history exists CKD HGB USE SMARTSET 08174 01/29/202401/28, 08/15/2021, 10/11/2020, Additional history exists Diabetic [...] this encounter Medical Devices Implanted Type Area Can Top Setter Device Identifier Shelf Expiration Date Model / Serial / Lot Olympus Single Use Repositional Clip Implanted:Qty: 1 on 05/09/2020 by Giovani Rico MD at ENDOSCOPY [facility] N/A: Colon 10/27/2022 [id number]-[id number] / / Description:lot 01K Lens Intraoc 23.0 - [id number] - [id number] Implanted:Qty: 1 on 10/14/2020 by Fransisco Cox MD at OR [facility] Left: Eye [employer]CH [employer]OMB 01/25/2025 [id number] / [id number] / [id number] Lens Intraoc 23.0 - [id number] - [id number] Implanted:Qty: 1 on 11/03/2020 by Fransisco Cox MD at OR [facility] Right: Eye BAUSCH & LOMB 12/25/2024 [id number] / [id number] / documented as of this encounter Care Teams Comb Winder Relationship Specialty Start Date End Date Billy Hobbs MD [address] [address] PCP - General Family Medicine 12/08/21 documented as of this encounter
--- OUTSIDE RECORDS SUMMARY | 2023-10-17 07:43 | External Medical Summary | Summary of Care ---
Author Name Unknown Organization [facility] Address [address] [address] Phone [phone] Care Team Providers Care Recovery Assistant Name Role Phone Billy Hobbs MD Primary Care Provider Reason for Visit * Reason Comments Skin Check Lesion Patient here for fbs e and would like lesions around eyes looked at Encounter Details Date Type Department Care Team (Late st Contact Info) Description 09/05/2023 10:00 AM EST Office Visit Dermatology, Deric Little [address] [facility] [address] [id number] Linda Guzman PA-C [address] [facility] [address] [place] [phone] AK (actinic keratosis)*; Seborrheic keratosis; Multiple nevi; Lentigines; Milia; History of nonmelanoma skin cancer; Screening exam for skin cancer Allergies No known active allergiesdocumented as of this encounter (statuses as of 09/11/2023) Medications Medication Sig Dispensed Refills Start Date [...] nitroglycerin (NITROSTAT) 0.4 MG SUBLIndications:At herosclerosis of pokagon coronary artery of pokagon heart without angina pectoris one tab under [...] MORNING 90 Tablet 3 02/25/2023 02/25/2024 Active Atenolol 50 MG Oral Tablet (Tenormin)Indicati ons:Atherosclerosi s of pokagon coronary artery of pokagon heart without angina pectoris TAKE ONE-HALF TABLET BY MOUTH EVERY DAY IN THE MORNING 45 Tablet 1 02/25/2023 02/25/2024 Active metFORMIN HCl 500 MG [...] until healed. 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 current use of anticoagulant therapy 0 07/17/2012 Overview: ICD-10 update of inactive term 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 Family history of diabetes mellitus 12/29/2010 FAMILY HX AAA 02/19/2010 Overview: 03/2017 Us neg for AAA Us neg 2006 Dyslipidemia, goal LDL below 70 10/04/2009 Overview: 06/27/2021 will repeat before July on crestor 20 Last Assessment & Plan: will repeat before July on crestor 20 Atherosclerosis of pokagon co ronary artery of pokagon heart without angina pectoris 07/17/2009 Overview: 08/28/2019 [...] Overview: 02/17/2018 Has had Mohs bitemporal at [facility] Basal Cell Carcinoma R hoahaoism - 2006 BCC - L shoulder 2007 BCC - R upper back - 2012 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 Actinic keratosis 07/08/2007 S/P angioplasty with stent 03/03/2006 Overview: RCA 01/31 Advance directive discussed with patient 005 Overview: 11/12/2016 pt confirms promises to bring . 07/06/2016 Discussed advance directive and living will 1 POA 2 POA son Jorge [phone] POAson Christian Smallwood Given brochure No, Advance Directive brochure given to patient. documented as of this encounter (statuses as of 09/11/2023) Resolved Problems Problem Noted Date Diagnosed Date [...] ANTIPROLIFERATIVE FOR RESTENOSIS II TRIAL REMI # [id number] PI: Prashant Fletcher MD SC: Erika Cohn RN, BSN Costar II Clinical Trial*[id number] 03/14/2006 03/21/2011 Overview: Renamed Per Clinical Trials Billing Project. COSTAR II: COBALT CHROMIUM STENT WITH ANTIPROLIFERATIVE FOR RESTENOSIS II TRIAL REMI # [id number] PI: Prashant Fletcher MD SC: Erika Cohn RN, BSN Coronary atherosclerosis of pokagon coronary artery 02/12/2006 07/17/2009 Overview: S/P stent RCA HTN, goal below 130/80 05/05 Overview: Hyzaar, atenolol Dyslipidemia, goal to be determined 10/04/2009 Overview: Per Lipid Taxonomy. Family history of ischemic heart disease 07/17/2009 Cervicalgia 12/29/2010 F/u of acute posterior myocardial infarction 05/19/2009 Overview: Modified by Acute [place] Protocol #5. Prediabetes 07/05/2022 Overview: Hemoglobin AIC Results: HEMOGLOBIN, A1C(%) Christiano Dt/Tm Resulted Value Status 11/08/11 7:33A 11/08/11 5.6 FINAL 01/26/11 7:25A 01/26/11 5.6 FINAL 02/27/06 7:02A 02/27/06 5.8 FINAL Glucose Results: GLUCOSE(mg/dL) Christiano Dt/Tm Resulted Value Status 06/27/15 7:10A 06/27/15 113 FINAL 05/03/14 7:12A 05/03/14 114 FINAL 09/01/13 7:11A 09/01/13 113 FINAL documented as of this encounter (statuses as of 09/11/2023) Immunizations Name Administration Dates Next Due COVID-19 [...] t, High Dose, No Preserve, IM 07/30/2019 TD - Tetanus/Diptheria (ADULT) 11/06/1995 TDAP (age 10 and older)(Boostrix) 09/16/2017 TDAP [...] as of this encounter Progress Notes * Linda Guzman PA-C - 09/05/2023 10:00 AM EST SUBJECTIVE: CC: Chief Complaint Patient presents with Skin Check Lesion Patient here for fbse and would like lesions around eyes looked at HPI: Terry Smallwood is a 73 year old male who is an established patient presenting for FBSE. Last dermatology clinic visit: 02/[address] Paz s/p chemoprophylaxis which was very helpful. Few spots around the left eye to check-none bothersome. DERMATOLOGIC PAST MEDICAL HISTORY: Reviewed previous office notes and relevant surgical pathology: History of skin disorders: AKs (s/p Efudex), rosacea (Metrogel) History of skin cancers: BCC -Left lateral eyebrow - 2 stages with a Y - Plasty repair 2017 Dr. Gamble BCC - Right hoahaoism - - 3 stage with a Y plasty 2018 Dr. 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 REVIEW OF SYSTEMS: See HPI- all other findings negative Constitutional: (-) fever, chills, sweats, weight loss Skin: (-) no rash or new or changing moles or skin lesions MEDICA TIONS: Current Outpatient Medications Medication Sig Dispense Refill MULTIVITAMIN PO TABS Take 1 Tab by mouth daily. 0 0 metroNIDAZOLE, topical, (METROCREAM) 0.75 % cream Apply topically to affected area 2 times a day. apply to affected area. 45 g 5 Aspirin 81 MG Oral Tablet Delayed Release Take 1 Tablet by mouth at bedtime. Alpha-Lipoic Acid 100 MG TABS Take 1 Tab by mouth daily. Cholecalciferol (VITAMIN D) 2000 units Tablet Take 2000 units by mouth once daily 90 Tab 3 nitroglycerin (NITROSTAT) 0.4 MG SUBL one tab under tongue as needed for chest pain maximum 3 doses25 Tab 5 Cyanocobalamin (VITAMIN B 12) 500 MCG TABS Take 500 mcg by mouth daily. CPAP every night at bedtime. Auto 5-20 cm Tylenol 325 MG Oral Capsule (Acetaminophen) Take by mouth . Furosemide 40 MG Oral Tablet (Lasix) TAKE ONE TABLET BY MOUTH TWICE A DAY 180 Tablet 3 Potassium Chloride ER 20 MEQ Oral Tablet Extended Release TAKE ONE TABLET BY MOUTH TWICE A DAY 180 Tablet 3 Rosuvastatin Calcium 20 MG Oral Tablet (Crestor) TAKE 1 TABLET BY MOUTH DAILY 90 Tablet 3 Losartan Potassium-HCTZ 100-25 MG Oral Tablet (Hyzaar) TAKE ONE TABLET BY MOUTH EVERY DAY IN THE MORNING 90 Tablet 3 Atenolol 50 MG Oral Tablet (Tenormin) TAKE ONE-HALF TABLET BY MOUTH EVERY DAY IN THE MORNING 45 Tablet 1 metFORMIN HCl 500 MG Oral Tablet (Glucophage) TAKE 1 TABLET BY MOUTH TWICE A DAY WITH MORNING AND EVENING MEALS 180 Tablet 0 Fluticasone Propionate 50 MCG/ACT Nasal Suspension (Flonase Allergy Relief) Administer 2 Sprays into nostril in the morning and 2 Sprays before bedtime. Pt takes as needed only. Empagliflozin 10 MG Oral Tablet (Jardiance) Take 1 Tablet by mouth in the morning. 90 Tablet 3 No current facility-administered medications for this visit. ALLERG Y: Patient has no known allergies. OBJECTIVE: GEN: Healthy, alert, no distress, appears oriented, pleasant, and cooperative. PSYCH: Appropriate mood and affect, alert SKIN: Detailed exam of scalp, hair, face including lids and lips, ears, neck, chest, back, abdomen,buttocks, deferred groin exam, bilateral upper extremities and bilateral lower extremities including the nails and digits was completed and are within normal limits with the following exceptions: 1. Scattered over the vertex scalp, face and ears are rough, scaly, thin whitish to red-pink plaques 2. At the trunk and extremities are several scattered plummer/brown hyperkeratotic stuck on appearing waxy papules. 3. Scattered at the chest, abdomen, back upper and lower extremities are multiple evenly pigmented plummer to brown macules and papules without significant irregularity 4. Bilateral periorbital and eyelid margin are smooth, white papules 5. Well healed scar at primary site(s) without evidence of recurrence. ASSESSMENT/PLAN: AK (actinic keratosis) (Primary) - Fluorouracil 5 % External Cream (Efudex); Apply twice daily to face and scalp for 3-4 weeks, followed by Vaseline until healed. Actinic keratoses -location(s) noted in physical exam -discussed etiology and low risk premalignant potential of these lesions -discussed options including close monitoring vs cryotherapy vs Efudex. -Recommend topical Efudex 5% cream (5-fluorouracil/calcipotriene) twice daily for 3-4 weeks. Patient advised that local skin reactions such as erythema (redness), blistering, irritation, itch, burning, and pain is expected with use of this medication and that individuals with brisk inflammatory response often obtain the best clinical response. Explained that this reaction is often delayed and appears after stopping the medication. Patient to stop if significant ulceration or irritation developsand is intolerable. 2. Seborrheic keratosis(-es) -Reassured of the benign nature of lesion -Discussed with patient that they may get more of these lesions in the future -If there are any lesions that become irritated, bleed, or painful to return to clinic for evaluation -No current treatment necessary at this time 3. Multiple benign-appearing nevi and lentigines - No features concerning for malignancy on exam today. - Continue to monitor with monthly self-skin exams. - Patient counseled on ABCDEs of melanoma. - Discussed and emphasized importance of sun protection including broadband, water-resistant, SPF 30 or greater sunscreen with reapplication q2h or after swimming/excessive perspiration and sun protective attire (wide-brimmed hats, long pants/shirt, sunglasses). - Patient to contact physician for any new or changing lesions or other concerns. 4. Milia - Discussed benign nature of lesions -Deferred extraction due to location of lesions, can place occulopastics/ophthalmology referral if desires in future. 5. History of nonmelanoma skin cancer -No evidence of recurrence. 6. Screening exam for skin cancer - DERM IMAGE (SITE) Follow Up: Return in about 1 year (around 09/05/2024) for FBSE. | For: FBSE Patient alone today. Follow-up: 1 year Photos taken, patient consented to photos taken. Applicable photos (if any) and chart reviewed by Dr. Garett Gunderson. The patient was encouraged to contact me with any further questions or concerns. Linda Guzman PA-C 09/05/2023 * Jose Luis Gunderson MD - 09/05/2023 10:00 AM EST I have reviewed the relevant notes and photographs taken by Linda Guzman PA-C. I have reviewed and agree with the assessment and plan. Jose Luis Gunderson MD documented in this encounter Nursing Notes * Henrietta Thompson MED ASSIST - 09/05/2023 9:40 AM EST Chief Complaint Patient presents with Skin Check Lesion Patient here for fbse and would like lesions around eyes looked at Visit date not found documented in this encounter Plan of Treatment Upcoming Encounters Date Type Department Care Team (Late st Contact Info) Description 09/26/2023 1:20 PM EST Office Visit [facility] [place] [phone] Macy Lui MD [address] [place] [address] 10/07/2023 8:40 AM EST [place] [address] [facility]2, [facility] [place] [phone] 11/25/2023 5:00 PM EST [facility] [phone] Billy Hobbs MD [address] [place] [phone] 08/04/2024 10:30 AM EDT Office Visit [facility] [address] [place] [phone] Cesar Dennis, [address] [place] [address] 09/07/2024 9:20 AM EST Office Visit Dermatology, [facility] [address] [place] [address] [phone] Linda Guzman PA-C [address] [place] [address] [place] [address] Scheduled Procedures Name Priority Associated Diagnoses Date/Ti me COLONOSCOPY FLEXIBLE PROXIMA L DIAGNOSTIC Recall History of colonic polyps Health Maintenance Due Date Last Done Comments Hepatitis B (1 of 3 - Risk 3-dose series) 2011 GFR 01/29/2023 07/31/2022, 0 05/2022, 12/20/2021, Additional history exists COVID-19 Vaccine ( season) 2023 08/23/2021, 12/22/2020, 11/23/2020 CKD PHOS USE SMARTSET 41501 07/05/2023 07/05/2022, 1 12/01/2017 Diabetic Foot Exam 07/05/2023 07/05/2022 HbA1c 07/30/2023 01/28/2023, 0 05/2022, 12/20/2021, Additional history exists Diabetic Eye Exam 09/17/2023 09/17/2022, 09/17/2022 Depression Screening 11/26/2023 11/26/2022 Albumin/Creatinine Ratio 01/29/2024 04 023, 12/20/2021, 08/15/2021, Additional history exists CKD HGB USE SMARTSET 13860 01/29/202401/28, 08/15/2021, 10/11/2020, Additional history exists COLONOSCOPY-EVERY [...] this encounter Medical Devices Implanted Type Area Foaming Machine Operator Device Identifier Shelf Expiration Date Model / Serial / Lot Olympus Single Use Repositional Clip Implanted:Qty: 1 on 05/09/2020 by Giovani Rico MD at ENDOSCOPY [facility] N/A: Colon 10/27/2022 [id number] / / Description:lot 01K Lens Intraoc 23.0 - [id number] - [id number] Implanted:Qty: 1 on 10/14/2020 by Fransisco Cox MD at OR [facility] Left: Eye [employer] 01/25/2025 [id number] / [id number] / [id number] Lens Intraoc 23.0 - [id number] - [id number] Implanted:Qty: 1 on 11/03/2020 by Fransisco Cox MD at OR [facility] Right: Eye [employer] 12/25/2024 [id number] / [id number] / documented as of this encounter Procedures Procedure Name Priority Date/Time Associated Diagnosis Comments DERM IMAGE (SITE) Routine 09/05/2023 Screening exam for skin cancer documented in this encounter Results * DERM IMAGE (SITE) (09/05/2023) 09/05/2023 Linda Guzman PA-C DIGITAL PHOTOGR APHY documented in this encounter Visit Diagnoses Diagnosis AK (actinic keratosis)- Primary Actinic keratosis Seborrheic keratosis Other seborrheic keratosis Multiple nevi Benign neoplasm of skin, site unspecified Lentigines Other dyschromia Milia Sebaceous cyst History of nonmelanoma skin cancer Personal history of other malignant neoplasm of skin Screening exam for skin cancer Screening for malignant neoplasm of the skin documented in this encounter Care Teams Recovery Assistant Relationship Specialty Start Date End Date Billy Hobbs MD [address] [phone] PCP - General Family Medicine 12/08/21 documented as of this encounter
--- NOTE | 2023-10-17 08:39 | History & Physical Bridge Note ---
Date of Service October 17, 2023 History & Physical Bridge Note I have examined the patient, reviewed the History & Physical and in the interval since the performance of the History & Physical I have noted the following changes of clinical significance: no changes noted
[2023-10-17 09:02] LABS: Partial Thromboplastin Time 27 Seconds (21-31); Prothrombin Time 11.3 Seconds (9.0-12.0)
[2023-10-17] MEDS ORDERED: ORTHO JOINT ANESTHETIC ONE (09:04)
[2023-10-17] MEDS ORDERED: ePHEDrine sulfate 50 MG/ML AMP IV PRN (09:07)
[2023-10-17] MEDS ORDERED: HYDROmorphone INJ 1 MG/ML SYRINGE IV PRN (09:07)
[2023-10-17] MEDS ORDERED: ATROPINE SULFATE 0.1 MG/ML 10ML SYR IV PRN (09:07)
[2023-10-17] MEDS ORDERED: PROPOFOL IV EMULSION 10 MG/ML 20 ML VIAL IV ONE ×2 (10:09→11:37)
[2023-10-17] MEDS ORDERED: LIDOCAINE 2% 2 ML VIAL/AMP(20MG/ML) INFIL ONE (10:09)
[2023-10-17] MEDS ORDERED: ePHEDrine sulfate 50 MG/ML AMP ONE (10:22)
--- NOTE | 2023-10-17 11:32 | Post Operative Brief Note ---
Immediate Post Op Note v1 Date of Surgery October 17, 2023 Pre & Post Diagnosis Operation Date: 10/17/23 09:15 Pre-Op Diagnosis: Left Hip Osteoarthritis Post-Op Diagnosis: Left Hip Osteoarthritis I identified the patient and participated in the time-out.: Yes Procedure Operation Date: 10/17/23 09:15 Actual Procedures p Left Anterior Approach Total Hip Replacement(Left) - Cm Gates MD Surgeon Cm Gates MD Wedding Transportation Driver Josh Cunningham PA-C Estimated Blood Loss 200 Findings Consistent with Post-Op Diagnosis Drains Hemovac Drain
[2023-10-17] MEDS ORDERED: PHARMACY GLYCEMIC MGMT CONSULT PRN (11:35)
[2023-10-17] MEDS ORDERED: traMADol HCL 50 MG TABLET PO PRN (11:35)
[2023-10-17] MEDS ORDERED: bisacodyL 10 MG SUPP PR PRN (11:35)
[2023-10-17] MEDS ORDERED: MAGNESIUM HYDROXIDE SUSP 30 ML UDC PO PRN (11:35)
[2023-10-17] MEDS ORDERED: ONDANSETRON INJ 2 MG/ML 2 ML VIAL IV PRN (11:35)
[2023-10-17] MEDS ORDERED: METOCLOPRAMIDE HCL INJ 5 MG/ML 2 ML VIAL IV PRN (11:35)
[2023-10-17] MEDS ORDERED: NALOXONE HCL 0.4 MG/1 ML VIAL/CARP IV PRN (11:35)
--- NOTE | 2023-10-17 12:09 | Fluoroscopy Report ---
FL hip LT 1V CLINICAL HISTORY: LT ANTERIOR HIP COMPARISON STUDY: None. FLUOROSCOPY TIME: 11.2 seconds. Ka, r: 3.37 mGy FLUOROSCOPIC IMAGES: 3 FINDINGS: Fluoroscopy was provided during left hip arthroplasty. Hardware is intact. No fracture is i dentified by fluoroscopy. There is an acetabular screw. IMPRESSION: Fluoroscopy provided during left hip arthroplasty. ACT 112: Negative or not required by law. Electronically signed by: Darrick White M.D. 10/17/2023 12:08 PM
--- NOTE | 2023-10-17 13:08 | Anesthesiology Progress Note ---
Date of Service October 17, 2023 Anesthesia Post Procedure Vital Signs Vital Signs: Temp Pulse Pulse Resp BP Pulse Ox O2 Del Method 10/17/23 12:55 63 16 124/69 95 Room Air 10/17/23 12:40 36.2 C L 64 16 104/66 96 Room Air 10/17/23 12:30 69 21 116/68 96 Room Air 10/17/23 12:20 72 19 118/67 96 Room Air 10/17/23 12:10 36.4 C L 63 20 118/65 100 Oxymask 10/17/23 12:01 36 C L 64 18 104/58 L 98 Oxymask 10/17/23 08:35 36.8 C 78 20 130/66 95 Room Air O2 Flow Rate 10/17/23 12:55 10/17/23 12:40 10/17/23 12:30 10/17/23 12:20 10/17/23 12:10 3 10/17/23 12:01 6 10/17/23 08:35 Transfer of Care Handoff Completed per policy Notes Mental Status: alert / awake / arousable Patient Amnestic to Procedure: Yes Nausea / Vomiting: adequately controlled Pain: adequately controlled Airway Patency, RR, SpO2: stable & adequate BP & HR: stable & adequate Hydration State: stable & adequate Neuraxial Anesthesia: was administered and sensory block is resolving Anesthetic Complications: no major complications apparent
[2023-10-17] MEDS: INSULIN ASPART PER UNIT CHARGE SC SCH ×3 (14:59→21:22)
--- NOTE | 2023-10-17 15:16 | Pharmacy Report ---
Pharmacy Glycemic Short Note 2 - Date of Service October 17, 2023 - Glycemic Short BSG Results (Last 24 hours): 10/17/23 10/17/23 08:29 14:45 POC Glucose 120 H 172 H OUTPATIENT ANTIDIABETIC REGIMEN: * metformin 500mg PO BID * Jardiance 10mg PO daily * HbA1c 6.4% (09/11/23) ASSESSMENT: * Terry is a 73 YOM admitted status post total hip replacement with a history of T2DM. Pharmacy has been consulted to assist with glycemic management * Preoperative BSG within goal range this AM, received 8mg of dexamethasone PO, will cover the dexamethasone with 15 units of Lantus (~0.1units/kg) * Lunchtime BSG slightly elevated (taken after lunch eaten, RN instructed to only cover carbs), Novolog initiated at a weight based stress of 2.5 (based on AdjBW). PLAN FOR INPATIENT GLYCEMIC CONTROL: * Hold outpatient oral diabetes medications * Basal insulin * Lantus 15 units SQ Daily * Bolus insulin * NovoLog per scale ACHS or Q6hrs while NPO * Goal Range: Low 110 mg/dL - High 140 mg/dL * Correction Factor: 20 mg/dL/unit * Nutritional / Prandial insulin per carb ratio of 1 unit per 7 grams CHO consumed
[2023-10-17] MEDS: SODIUM CHLORIDE 0.9% 1,000 ML IV SCH (15:57)
[2023-10-17] MEDS ORDERED: WARFARIN SOD 7.5 MG TAB PO SCH (16:00)
[2023-10-17] MEDS ORDERED: WARFARIN SOD 10 MG TAB PO STA (16:01)
[2023-10-17] MEDS ORDERED: WARFARIN SOD 7.5 MG TAB PO STA (16:04)
[2023-10-17] MEDS: LANTUS PER UNIT CHARGE SC SCH (17:08)
--- NOTE | 2023-10-17 17:35 | Operative Report ---
Post Operative Report Pre & Post Diagnosis Operation Date: 10/17/23 09:15 Pre-Op Diagnosis: Left Hip Osteoarthritis Post-Op Diagnosis: Left Hip Osteoarthritis I identified the patient and participated in the time-out.: Yes Procedure Operation Date: 10/17/23 09:15 Actual Procedures p Left Anterior Approach Total Hip Replacement(Left) - Cm Gates MD Surgeon Cm Gates MD Bariatric Physician Josh Cunningham PA-C Estimated Blood Loss 200 Findings Consistent with Post-Op Diagnosis Severe degenerative changes patient had a morbidly obese body habitus was made the approach difficult and the surgical procedure more lengthy Specimens Femoral head and bone and cartilage fragments Complications None Indications Patient is an obese 73-year-old male with end-stage arthritis of the hip who has failed conservative management to include injections and physical therapy. Components used: [employer] a fit system: Acetabulum size 60 with 25 mm dome screw and Oreo Oxinium liner. Femur size 11 high offset with 0 neck length 28 mm Oxinium inner dual mobility head. Description of Procedure Following satisfactory spinal anesthesia the patient was supine on the operating room table. The left leg was placed in the traction device in the right leg in the well-leg alfonso. Positioning was confirmed with fluoroscopy. The leg was prepared with ChloraPrep and draped sterilely. A surgical timeout was performed. An anterior approach was performed in the interval between the sartorius and tensor muscles. There was a fairly large subcutaneous fat layer and a large tensor muscle which made the approach difficult. The circumflex femoral vessels were identified and coagulated. An anterior capsulotomy was performed. Fluoroscopy was used to confirm femoral neck resection level which was completed and the arthritic femoral head was removed. The acetabular self-retaining retractor was placed. Acetabular preparation was completed after excision of labral and soft tissues with reaming under direct vision. A 60 shell was impacted into a position of 35 to 40 degrees of abduction and 25 degrees of anteversion confirmed with fluoroscopy. A dome screw was placed followed by the Oreo Oxinium liner. There was no osteophytes. Local anesthetic was placed and the wound was irrigated. The femur was placed in a position of external rotation extension and adduction. Femoral canal was identified and was prepared up to a size 11. A trial reduction with a high offset neck and a 0 neck length and or dual mobility head was performed. Fluoroscopy showed good fit and fill of the proximal canal very good orientation of the components. Leg length and offset were restored at the level of the lesser trochanter. The hip was dislocated. The trial component removed. Local anesthetic was placed. After irrigation the stem head complex of the same size was placed. The hip was reduced with fluoroscopy showing similar findings. There was not a lot of bleeding. The wound was irrigated with 500 cc of expe rience irrigation. The tensor fascia was closed with a running suture of 0 strata fix as well as the deeper subcutaneous fat layers. The most superficial layer was closed with 3 oh strata fix. Dermabond and a Prineo dressing followed by a negative pressure wound dressing were applied. The patient was returned to his bed in stable condition. Note: Josh FLORES was present and assisted throughout due to the complicated nature of this case. He help with preparation and set up, he first aid instructor throughout. He assisted with hemostasis and exposure throughout the procedure. He also closed the fascial subcutaneous and skin layers and applied the postop dressing. I attest to the content of the Intraoperative Record and any orders documented therein. Any exceptions are noted below.
[2023-10-17] MEDS: ceFAZolin 2000MG 2,000 MG/15 ML SYR IV SCH (17:43)
[2023-10-17] MEDS: DOCUSATE SODIUM 100 MG CAP PO SCH (20:36)
[2023-10-17] MEDS ORDERED: SENNA 8.6 MG TAB PO SCH (21:00)
[2023-10-17] MEDS ORDERED: LOSARTAN/HCTZ 50/12.5MG TAB PO SCH (21:00)
[2023-10-17] MEDS ORDERED: metFORMIN HCL 500 MG TAB PO SCH (21:00)
[2023-10-17] MEDS ORDERED: ASPIRIN 81 MG ECTAB PO SCH (21:00)
[2023-10-17] MEDS: POTASSIUM CHLORIDE CRTAB 20 MEQ TABCR PO SCH (21:23)
[2023-10-18] MEDS: ceFAZolin 2000MG 2,000 MG/15 ML SYR IV SCH (01:18)
[2023-10-18] MEDS: SODIUM CHLORIDE 0.9% 1,000 ML IV SCH (01:18)
[2023-10-18 06:44] LABS: Hematocrit (blood only) 39.9 % (42.0-52.0); Hemoglobin 13.6 g/dl (14.0-18.0); Mean Corpuscular Hemoglobin 29.2 pg (25.0-34.0); Mean Corpuscular Hgb Conc 34.1 g/dL (32.0-36.0); Mean Corpuscular Volume 85.8 fL (80.0-100.0); Mean Platelet Volume 9.8 fL (9.4-12.4); Platelet Count 189 K/uL (130-400); RDW Coefficient of Variation 14.2 % (11.5-14.5); Red Blood Count 4.65 M/uL (4.70-6.10); White Blood Count 13.04 K/ul (4.8-10.8)
[2023-10-18 06:54] LABS: BUN Creatinine Ratio 20.8 (10-20); Calcium 8.5 mg/dl (8.6-10.3); Creatinine Clr Calc Pharmacy 62.1 ml/min; Est GFR (African American) 53.6 ml/min; Est GFR (Non-African American) 46.2 ml/min; Potassium 4.4 mmol/L (3.5-5.1)
[2023-10-18 07:06] LABS: Basophils # (auto) 0.02 K/uL (0.00-0.20); Basophils % (auto) 0.2 %; Immature Granulocytes # (auto) 0.08 K/uL (0.01-0.20); Immature Granulocytes % (auto) 0.6 %; Lymphocytes # (auto) 0.33 K/uL (1.20-3.40); Lymphocytes % (auto) 2.5 %; Monocytes # (auto) 0.78 K/uL (0.11-0.59); Neutrophils # (auto) 11.83 K/uL (1.40-6.50); Neutrophils % (auto) 90.7 %; Polychromasia 1+
[2023-10-18 07:23] LABS: INR 1.1 (0.9-1.1); Prothrombin Time 11.7 Seconds (9.0-12.0)
[2023-10-18] MEDS: POTASSIUM CHLORIDE CRTAB 20 MEQ TABCR PO SCH (07:44)
[2023-10-18] MEDS: DOCUSATE SODIUM 100 MG CAP PO SCH (07:44)
[2023-10-18] MEDS: INSULIN ASPART PER UNIT CHARGE SC SCH (07:50)
[2023-10-18] MEDS: LANTUS PER UNIT CHARGE SC SCH (07:50)
[2023-10-18] MEDS ORDERED: MULTIVITAMIN TAB PO SCH (09:00)
[2023-10-18] MEDS ORDERED: EMPAGLIFLOZIN 10 MG TAB PO SCH (09:00)
[2023-10-18] MEDS ORDERED: ATENOLOL 25 MG TABLET PO SCH (09:00)
--- NOTE | 2023-10-18 09:51 | Orthopedic Progress Note ---
Date of Service October 18, 2023 Assessment & Plan (1) Degenerative joint disease of left hip: Plan: patient is doing extremely well. He is ready for discharge to home. We did review hip precautions and physical therapy with him this morning. Also reviewed his Coumadin protocol. Per the Coumadin clinic. He will return to the office in 2 weeks time Plan Left total hip replacement direct anterior approach. Monitor overnight due to A-fib per anesthesia Admission and Anticipated Discharge Date Admission Date: October 17, 2023 Subjective Postoperative day #1 left total hip replacement Patient is doing extremely well. He has been ambulatory with minimal assistance distances of over 500 feet. His pain is well-controlled. And he offers no complaints today. Review of Systems Review of Systems: Hip pain Physical Exam Physical Exam: Weight 126 kg BMI 38 General: Obese male who appears his stated age. HEENT: NCAT, EOMI, PERRLA Neck: Neck negative JVD negative bruits Heart: Irregularly irregular rhythm without murmurs or gallops Lungs: Breath sounds clear and present in all odell Abdomen: Obese soft nontender bowel sounds positive Extremities: Left hip shows equal leg lengths to the right passive range of motion is 5 to 85 degrees flexion -10 degrees internal rotation all which reproduces groin pain Neurological and vascular: Intact Musculoskeletal: His dressing is clean dry and intact. His hip is located. His thigh and calf are soft and nontender he is neurologically and vascularly intact His Hemovac drain was discontinued Results & Data Vital Signs (Past 12 Hours) Vital Signs Temp Pulse Resp BP BP Pulse Ox O2 Del Method 10/18/23 09:08 74 111/61 97 Room Air 10/18/23 07:26 36.9 C 90 16 101/62 95 Room Air 10/18/23 05:00 37.2 C 79 20 108/59 L 96 Room Air 10/18/23 01:21 36.6 C 77 18 108/70 96 Room Air
--- OUTSIDE RECORDS SUMMARY | 2023-10-18 14:41 | External Medical Summary | Summary of Care ---
Author Name Unknown Organization [facility] Address [address] [facility] [place] [address] Phone [phone] Care Team Providers Care Customer Engagement Manager Name Role Phone Billy Hobbs MD Primary Care Provider Reason for Referral * Evaluate & Treat - Unlimited Visits (Within 10 days (routine)) - Authorized Specialty Diagnoses / Procedures Referred By Eric santana Referred To Contact Ophthalmology Diagnoses Optic cupping of both eyes Erika Cain MD [address] [address] Referral ID Status Reason Start Date Expiration Date Visits Requested Visits Authorized [id number] Authorized Specialty Services Required 3 999 999 Question Answer Referral Priority Within 10 days (routine) Where should this appointment be scheduled? Gris Referring to: Gris Referring for: Ophthalmology Conditions Ophthalmology Conditions Other Ophthalmology (comment) Comments Abnormal retinal scan Reason for Visit * Reason Onset Date Comments Scan To Read 10/15/2023 Diabetic eye exa m Encounter Details Date Type Department Care Team (Late Contact Info) Description [facility] [address] [id number] Erika Cain MD [address] [address] Scan To Read (Diabetic eye exam) Allergies No known active allergiesdocumented as of this encounter (statuses as of 10/18/2023) Medications Medication Sig Dispensed Refills Start Date [...] nitroglycerin (NITROSTAT) 0.4 MG SUBLIndications:At herosclerosis of squax[place] coronary artery of squ[place] heart without angina pectoris one tab under [...] MG Oral Tablet (Tenormin)Indicati ons:Atherosclerosi s of [place] coronary artery of squax[place] heart without angina pectoris TAKE ONE-HALF TABLET BY MOUTH EVERY DAY IN THE MORNING 45 Tablet 3 09/23/2023 09/22/2024 Active documented as of this encounter (statuses as of 10/18/2023) Active Problems Problem Noted Date Diagnosed Date [...] cancer 01/26/2016 Overview: Basal Cell Carcinoma R anabaptism - 2006 BCC - L shoulder 2007 BCC - R upper back - 2012 BCC -Left lateral eyebrow - 2016 BCC - Right anabaptism - 2016 HTN, goal below 140/90 05/05/2014 [...] by US 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 persistent atrial fibrillation 06/29 detention current use of anticoagulant therapy 0 07/17/2012 Overview: ICD-10 update of inactive term 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 Family history of diabetes mellitus 12/29/2010 FAMILY HX AAA 02/19/2010 Overview: 03/2017 Us neg for AAA Us neg 2006 Dyslipidemia, goal LDL below 70 10/04/2009 Overview: 06/27/2021 will repeat before July on crestor 20 Last Assessment & Plan: will repeat before October apt on crestor 20 Atherosclerosis of squ[place] co ronary artery of squax[place] heart without angina pectoris 07/17/2009 Overview: 08/28/2019 [...] Overview: 02/17/2018 Has had Mohs bitemporal at [facility] Basal Cell Carcinoma R anabaptism - 2006 BCC - L shoulder 2007 BCC - R upper back - 2012 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 History Basal Cell Carcinoma R anabaptism,L shoulder, R upper back///C44. Actinic keratosis 07/08/2007 S/P angioplasty with stent 03/03/2006 Overview: RCA 01/31 Advance directive discussed with patient 005 Overview: 11/12/2016 pt confirms promises to bring . 07/06/2016 Discussed advance directive and living will 1 POA 2 POA son Jorge [phone] POAson Christian [place] Given brochure No, Advance Directive brochure given to patient. documented as of this encounter (statuses as of 10/18/2023) Resolved Problems Problem Noted Date Diagnosed Date [...] ANTIPROLIFERATIVE FOR RESTENOSIS II TRIAL REMI # [id number] PI: Prashant Fletcher MD SC: Erika Cohn RN, BSN Costar II Clinical Trial*[id number] 03/14/2006 03/21/2011 Overview: Renamed Per Clinical Trials Billing Project. COSTAR II: COBALT CHROMIUM STENT WITH ANTIPROLIFERATIVE FOR RESTENOSIS II TRIAL REMI # [id number] PI: Prashant Fletcher MD SC: Erika Cohn RN, BSN Coronary atherosclerosis of squ[place] coronary artery 02/12/2006 07/17/2009 Overview: S/P stent RCA HTN, goal below 130/80 05/05 Overview: Hyzaar, atenolol Dyslipidemia, goal to be determined 10/04/2009 Overview: Per Lipid Taxonomy. Family history of ischemic heart disease 07/17/2009 Cervicalgia 12/29/2010 F/u of acute posterior myocardial infarction 05/19/2009 Overview: Modified by Acute SC Protocol #5. Prediabetes 07/05/2022 Overview: Hemoglobin AIC Results: HEMOGLOBIN, A1C(%) Christiano Dt/Tm Resulted Value Status 11/08/11 7:33A 11/08/11 5.6 FINAL 01/26/11 7:25A 01/26/11 5.6 FINAL 02/27/06 7:02A 02/27/06 5.8 FINAL Glucose Results: GLUCOSE(mg/dL) Christiano Dt/Tm Resulted Value Status 06/27/15 7:10A 06/27/15 113 FINAL 05/03/14 7:12A 05/03/14 114 FINAL 09/01/13 7:11A 09/01/13 113 FINAL documented as of this encounter (statuses as of 10/18/2023) Immunizations Name Administration Dates Next Due COVID-19 [...] encounter Miscellaneous Notes * Telephone Encounter - Maureen Braden OSA - 10/18/2023 8:01 AM EST Called and spoke with pts spouse asking for him to call us at [phone] to schedule. * Telephone Encounter - Mary Cardoza OSA - 10/17/2023 3:53 PM EST LMOM to schedule with Optho. * Addendum Note - Erika Cain MD - 10/17/2023 3:51 PM ESTAddended by: ERIKA CAIN on: 10/17/2023 03:51 PM Modules accepted: Orders * Telephone Encounter - Erika Cain MD - 10/17/2023 3:51 PM EST Ophthalmology referral placed * Telephone Encounter - Bill Ryder MD - 10/16/2023 7:16 AM EST Retinal Scan Imaging [place] [id number] Retinal Scan Interpretation: There is no retinopathy in both eyes There is cupping in both eyes which should be evaluated. Diabetes Retinal Imaging Care Plan: The retinal scan results are abnormal - I will forward this encounter to the Ophthalmology DM Letter Pool [[id number]], they will send an abnormal retinal scan letter to the patient. I will forward thisencounter to the ordering provider. Patient prefers to be seen at [facility] for follow-up evaluation. This encounter will be sent to Ophthalmology scheduling services, please schedule the patient within 3 months. Bill Ryder MD 10/16/2023 7:16 AM * Telephone Encounter - April Snider LPN - 10/15/2023 5:48 PM EST A Diabetic Telemed Eye image was taken and requires your interpretation for Dr Cain. Please check your inbasket for image. Patient prefers to be seen at [facility] if a follow-up appointment is needed. documented in this encounter Plan of Treatment Upcoming Encounters Date Type Department Care Team (Late st Contact Info) Description 10/31/2023 8:40 AM EST Anticoagulation Pharmacy, [place] [address] [address] Pharmacist2, [facility] [place] [address] [address] 11/25/2023 5:00 PM EST Office Visit Family [facility], [place] [address] [phone] Billy Hobbs MD [address] [address] 08/04/2024 10:30 AM EDT Office Visit Cardiology [place] [facility] [address] [place] [address] Cesar Dennis, 09/07/2024 9:20 AM EST Office Visit Dermatology, Deric Little [address] [facility] [address] [address] Linda Guzman [facility]-C [facility] [address] [place] [address] Scheduled Procedures Name Priority Associated Diagnoses Date/Ti me COLONOSCOPY FLEXIBLE PROXIMA L DIAGNOSTIC Recall History of colonic polyps Scheduled Referrals Name Type Priority Associated Diagnoses Orde r Schedule ADULT/PEDS OPHTHALMOLOGY/OPTOM ETRY REFERRAL OP Referral Within 10 days (routine) Optic cupping of both eyes Ordered: 10/17/2023 Health Maintenance Due Date Last Done Comments Hepatitis B (1 of 3 - Risk 3-dose series) 2011 GFR 01/29/2023 07/31/2022, 090 05/2022, 12/20/2021, Additional history exists COVID-19 Vaccine ( season) 2023 08/23/2021, 12/22/2020, 11/23/2020 CKD PHOS USE SMARTSET 11186 07/05/2023 07/05/2022, 1 12/01/2017 HbA1c 07/30/2023 01/28/2023, 09/0 05/2022, 12/20/2021, Additional history exists Depression Screening 11/26/2023 11/26/2022 Albumin/Creatinine Ratio 01/29/2024 023, 12/20/2021, 08/15/2021, Additional history exists CKD HGB USE SMARTSET 78515 01/29/202401/28, 08/15/2021, 10/11/2020, Additional history exists Diabetic [...] this encounter Medical Devices Implanted Type Area Early Morning Device Identifier Shelf Expiration Date Model / Serial / Lot Olympus Single Use Repositional Clip Implanted:Qty: 1 on 05/09/2020 by Giovani Rico MD at [facility]COPY [facility] N/A: Colon 10/27/2022 [id number] / / Description:lot 01K Lens Intraoc 23.0 - [id number] - [id number] Implanted:Qty: 1 on 10/14/2020 by Fransisco Cox MD at OR [facility] Left: Eye BAUSCH & LOMB 01/25/2025 [id number] / [id number] / [id number] Lens Intraoc 23.0 - [id number] - [id number] Implanted:Qty: 1 on 11/03/2020 by Fransisco Cox MD at OR [facility] Right: Eye BAUSCH & LOMB 12/25/2024 [id number] / [id number] / documented as of this encounter Visit Diagnoses Diagnosis Optic cupping of both eyes- Primary documented in this encounter Care Teams Customer Engagement Manager Relationship Specialty Start Date End Date Billy Hobbs MD [address] [address] PCP - General Family Medicine 12/08/21 documented as of this encounter
--- OUTSIDE RECORDS SUMMARY | 2023-10-18 14:42 | External Medical Summary | Summary of Care ---
Author Name Unknown Organization [facility] Address [address] [facility] [place] [address] Phone [phone] Care Team Providers Care Die Developer Name Role Phone Billy Hobbs MD Primary Care Provider Reason for Referral * Evaluate & Treat - Unlimited Visits (Within 10 days (routine)) - Authorized Specialty Diagnoses / Procedures Referred By Eric santana Referred To Contact Ophthalmology Diagnoses Optic cupping of both eyes Erika Cain MD [address] [address] Referral ID Status Reason Start Date Expiration Date Visits Requested Visits Authorized [id number] Authorized Specialty Services Required 3 999 999 [...] Team (Late Contact Info) Description 10/[facility]2023 [facility] [address] [phone] Erika Cain MD [address] [address] Scan To Read (Diabetic eye exam) Allergies No known active allergiesdocumented as of this encounter (statuses as of 10/17/2023) Medications Medication Sig Dispensed Refills Start Date [...] nitroglycerin (NITROSTAT) 0.4 MG SUBLIndications:At herosclerosis of [place] coronary artery of [place] heart without angina pectoris one tab under [...] MG Oral Tablet (Tenormin)Indicati ons:Atherosclerosi s of [place] coronary artery of [place] heart without angina pectoris TAKE ONE-HALF TABLET BY MOUTH EVERY DAY IN THE MORNING 45 Tablet 3 09/23/2023 09/22/2024 Active documented as of this encounter (statuses as of 10/17/2023) Active Problems Problem Noted Date Diagnosed Date [...] cancer 01/26/2016 Overview: Basal Cell Carcinoma R cheondoism - 2006 BCC - L shoulder 2007 BCC - R upper back - 2012 BCC -Left lateral eyebrow - 2016 BCC - Right cheondoism - 2016 HTN, goal below 140/90 05/05/2014 [...] by US 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 persistent atrial fibrillation 06/29 assisted current use of anticoagulant therapy 0 07/17/2012 [...] October apt on crestor 20 Atherosclerosis of [place] co ronary artery of [place] heart without angina pectoris 07/17/2009 Overview: 08/28/2019 [...] Overview: 02/17/2018 Has had Mohs bitemporal at [facility] Basal Cell Carcinoma R cheondoism - 2006 BCC - L shoulder 2007 BCC - R upper back - 2012 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 Actinic keratosis 07/08/2007 S/P angioplasty with stent 03/03/2006 Overview: RCA 01/31 Advance directive discussed with patient 005 Overview: 11/12/2016 pt confirms promises to bring . 07/06/2016 Discussed advance directive and living will 1 POA 2 POA son Jorge [phone] POAson Christian [place] Given brochure No, Advance Directive brochure given to patient. documented as of this encounter (statuses as of 10/17/2023) Resolved Problems Problem Noted Date Diagnosed Date [...] ANTIPROLIFERATIVE FOR RESTENOSIS II TRIAL REMI # [id number] PI: Prashant Fletcher MD SC: Erika Cohn RN, BSN Costar II Clinical Trial*[id number] 03/14/2006 03/21/2011 Overview: Renamed Per Clinical Trials Billing Project. COSTAR II: COBALT CHROMIUM STENT WITH ANTIPROLIFERATIVE FOR RESTENOSIS II TRIAL REMI # [id number] PI: Prashant Fletcher MD SC: Erika Cohn RN, BSN Coronary atherosclerosis of [place] coronary artery 02/12/2006 07/17/2009 Overview: S/P stent [...] as of this encounter (statuses as of 10/17/2023) Immunizations Name Administration Dates Next Due COVID-19 [...] encounter Miscellaneous Notes * Telephone Encounter - Mary Cardoza OSA [...] 7:16 AM EST Retinal Scan Imaging [address] [place] [place] [id number] Retinal Scan Interpretation: There is no retinopathy in both eyes There is cupping in both eyes which should be evaluated. Diabetes Retinal Imaging Care Plan: The retinal scan results are abnormal - I will forward this encounter to the Ophthalmology DM Letter Pool [P [id number]], they will send an abnormal retinal scan letter to the patient. I will forward thisencounter to the ordering provider. Patient prefers to be seen at [facility] for follow-up evaluation. This encounter will be [...] Patient prefers to be seen at [facility] if a follow-up appointment is needed. documented in this encounter Plan of Treatment Upcoming Encounters Date Type Department Care Team (Late st Contact Info) Description 10/31/2023 8:40 AM EST Anticoagulation Deric Simpson [address] [place] [address] [place] [address] Pharmacist2, [facility] [address] [address] 11/25/2023 5:00 PM EST Office Visit Family [facility], [place] [address] [phone] Billy Hobbs MD [address] [id number] 08/04/2024 10:30 AM EDT Office Visit Cardiology Christy [facility] [address] [place] [address] Cesar Dennis, 09/07/2024 9:20 AM EST Office Visit Dermatology, [facility] [address] [address] Linda Guzman PACathyC [address] [address] Scheduled Procedures Name Priority Associated Diagnoses Date/Ti [...] Risk 3-dose series) 2011 GFR 01/29/2023 07/31/2022, 09/0 05/2022, 12/20/2021, Additional history exists COVID-19 Vaccine ( season) 2023 08/23/2021, 12/22/2020, 11/23/2020 CKD PHOS USE SMARTSET 66172 07/05/2023 07/05/2022, 1 12/01/2017 HbA1c 07/30/2023 01/28/2023, 09/0 05/2022, 12/20/2021, Additional history exists Depression Screening 11/26/2023 11/26/2022 Albumin/Creatinine Ratio 01/29/202401/28/2 023, 12/20/2021, 08/15/2021, Additional history exists CKD HGB USE SMARTSET 24910 01/29/202401/28, 08/15/2021, 10/11/2020, Additional history exists Diabetic [...] this encounter Medical Devices Implanted Type Area Collar Fuser Device Identifier Shelf Expiration Date Model / Serial / Lot Olympus Single Use Repositional Clip Implanted:Qty: 1 on 05/09/2020 by Giovani Rico MD at ENDOSCOPY [facility] N/A: Colon 10/27/2022 [id number] / / Description:lot 01K Lens Intraoc 23.0 - [id number] - [id number] Implanted:Qty: 1 on 10/14/2020 by Fransisco Cox MD at OR [facility] Left: Eye BAUSCH & LOMB 01/25/2025 [id number] / [id number] / [id number] Lens Intraoc 23.0 - [id number] - [id number] Implanted:Qty: 1 on 11/03/2020 by Fransisco Cox MD at [facility] Right: Eye BAUSCH & LOMB 12/25/2024 [id number] / [id number] / documented as of this encounter Visit Diagnoses Diagnosis Optic cupping of both eyes- Primary documented in this encounter Care Teams Die Developer Relationship Specialty Start Date End Date Billy Hobbs MD [address] [phone] PCP - General Family Medicine 12/08/21 documented as of this encounter
--- OUTSIDE RECORDS SUMMARY | 2023-10-18 14:42 | External Medical Summary | Summary of Care ---
Author Name Unknown Organization [facility] Address [address] [facility] [place] [address] Phone [phone] Care Team Providers Care Foster Care Therapist Name Role Phone Billy Hobbs MD Primary Care Provider Reason for Referral * Evaluate & Treat - Unlimited Visits (Within 10 days (routine)) - Authorized Specialty Diagnoses / Procedures Referred By Eric santana Referred To Contact Ophthalmology Diagnoses Optic cupping of both eyes Erika Cain MD [address] [place] [address] Referral ID Status Reason Start Date Expiration Date Visits Requested Visits Authorized [id number] Authorized Specialty Services Required 3 [phone] [...] Team (Late Contact Info) Description [facility] [address] [place] [phone] Erika Cain MD [...] nitroglycerin (NITROSTAT) 0.4 MG SUBLIndications:At herosclerosis of [place] coronary artery of [place] heart without angina pectoris one tab under [...] MG Oral Tablet (Tenormin)Indicati ons:Atherosclerosi s of [place] coronary artery of [place] heart without angina pectoris TAKE ONE-HALF TABLET [...] cancer 01/26/2016 Overview: Basal Cell Carcinoma R orthodoxy - 2006 BCC - L shoulder 2007 BCC - R upper back - 2012 BCC -Left lateral eyebrow - 2016 BCC - Right orthodoxy - 2016 HTN, goal below 140/90 05/05/2014 [...] by US 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 persistent atrial fibrillation 06/29 snf current use of anticoagulant therapy 0 07/17/2012 [...] October apt on crestor 20 Atherosclerosis of [place] co ronary artery of [place] heart without angina pectoris 07/17/2009 Overview: 08/28/2019 [...] Overview: 02/17/2018 Has had Mohs bitemporal at 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 Actinic keratosis 07/08/2007 S/P angioplasty with stent 03/03/2006 Overview: RCA 01/31 Advance directive discussed with patient 005 Overview: 11/12/2016 pt confirms promises to bring . 07/06/2016 Discussed advance directive and living will 1 POA 2 POA son Jorge [phone] POAson Christian [place] Given brochure No, [...] ANTIPROLIFERATIVE FOR RESTENOSIS II TRIAL REMI # [id number] PI: Prashant Fletcher MD SC: Erika Cohn RN, BSN Costar II Clinical Trial*[id number] 03/14/2006 03/21/2011 Overview: Renamed Per Clinical Trials Billing Project. COSTAR II: COBALT CHROMIUM STENT WITH ANTIPROLIFERATIVE FOR RESTENOSIS II TRIAL REMI # [id number] PI: Prashant Fletcher MD SC: Erika Cohn RN, BSN Coronary atherosclerosis of [place] coronary artery 02/12/2006 07/17/2009 Overview: S/P stent RCA HTN, goal below 130/80 05/05 Overview: Hyzaar, atenolol Dyslipidemia, goal to be determined 10/04/2009 Overview: Per Lipid Taxonomy. Family history of ischemic heart disease 07/17/2009 Cervicalgia 12/29/2010 F/u of acute posterior myocardial infarction 05/19/2009 Overview: Modified by Acute [place] Protocol #5. Prediabetes 07/05/2022 Overview: Hemoglobin AIC [...] as of this encounter Miscellaneous Notes * Addendum Note - Erika Cain MD - 10/17/2023 3:51 PM ESTAddended by: ERIKA CAIN on: 10/17/2023 03:51 PM Modules accepted: Orders * Telephone Encounter - Erika Cain MD - 10/17/2023 3:51 PM EST Ophthalmology referral placed * Telephone Encounter - Bill Ryder MD - 10/16/2023 7:16 AM EST Retinal Scan Imaging [place] [id number] Retinal Scan Interpretation: There is no retinopathy in both eyes There is cupping in both eyes which should be evaluated. Diabetes Retinal Imaging Care Plan: The retinal scan results are abnormal - I will forward this encounter to the Ophthalmology DM Letter Pool [[id number]], they will send an abnormal retinal scan letter to the patient. I will forward thisencounter to the ordering provider. Patient prefers to be seen at [facility] for follow-up evaluation. This encounter will be sent to Ophthalmology scheduling services, please schedule the patient within 3 months. Bill Ryder MD 10/16/2023 7:16 AM * Telephone Encounter - April Snider LPN - 10/15/2023 5:48 PM EST A Diabetic Telemed Eye image was taken and requires your interpretation for Dr Cain. Please check your inbasket for image. Patient prefers to be seen at [facility] if a follow-up appointment is needed. documented in this encounter Plan of Treatment Upcoming Encounters Date Type Department Care Team (Late st Contact Info) Description 10/31/2023 8:40 AM EST Anticoagulation Pharmacy, [address] [place] [address] Pharmacist2, [facility] [address] [place] [address] 11/25/2023 5:00 PM EST Office Visit Family Practice, [place] [address] [phone] Billy Hobbs MD [address] [address] 08/04/2024 10:30 AM EDT [facility] [address] [place] [address] Cesar Dennis, 09/07/2024 9:20 AM EST Office Visit Dermatology, [facility] [address] [place] [address] Linda Guzman, EDUIN [address] [place] [address] Scheduled Procedures Name Priority Associated Diagnoses Date/Ti [...] 08/23/2021, 12/22/2020, 11/23/2020 CKD PHOS USE SMARTSET 96234 07/05/2023 07/05/2022, 1 12/01/2017 HbA1c 07/30/2023 01/28/2023, 09/0 05/2022, 12/20/2021, Additional history exists Depression Screening 11/26/2023 11/26/2022 Albumin/Creatinine Ratio 01/29/2024 04 023, 12/20/2021, 08/15/2021, Additional history exists CKD HGB USE SMARTSET 30517 01/29/202401/28, 08/15/2021, 10/11/2020, Additional history exists Diabetic [...] this encounter Medical Devices Implanted Type Area Grader Green Meat Device Identifier Shelf Expiration Date Model / Serial / Lot Olympus Single Use Repositional Clip Implanted:Qty: 1 on 05/09/2020 by Giovani Rico MD at [facility] N/A: Colon 10/27/2022 [id number] / / Description:lot 01K Lens Intraoc 23.0 - [id number] - [id number] Implanted:Qty: 1 on 10/14/2020 by Fransisco Cox MD at OR [facility] Left: Eye [employer] 01/25/2025 [id number] / [id number] / [id number] Lens Intraoc 23.0 - [id number] - [id number] Implanted:Qty: 1 on 11/03/2020 by Fransisco Cox MD at OR [facility] Right: Eye [employer] 12/25/2024 [id number] / [id number] / documented as of this encounter Visit Diagnoses Diagnosis Optic cupping of both eyes- Primary documented in this encounter Care Teams Foster Care Therapist Relationship Specialty Start Date End Date Billy Hobbs MD [address] [id number] PCP - General Family Medicine 12/08/21 documented as of this encounter
[2023-10-18] MEDS ORDERED: WARFARIN SOD 10 MG TAB PO SCH ×2 (16:00)
[2023-10-18] MEDS ORDERED: WARFARIN SOD 7.5 MG TAB PO SCH (16:00)
--- NOTE | 2023-10-23 11:22 | Discharge Summary ---
Date of Service October 23, 2023 Admission HPI Per Admitting Provider Patient is a 72-year-old male with a greater than 1 year history of left hip and groin pain. It has been associated with decreased decreased range of motion and increased pain with all activities of daily living. He has decreased standing and walking tolerance. Radiographic evidence of severe degenerative arthritis of the hip. He has failed both sacroiliac and intra-articular injections and is admitted for elective hip replacement surgery. He also has a history of severe spine disease and atrial fibrillation for which he is on chronic Coumadin. Admission Exam Per Admitting Provider Physical Exam: Weight 126 kg BMI 38 General: Obese male who appears his stated age. HEENT: NCAT, EOMI, PERRLA Neck: Neck negative JVD negative bruits Heart: Irregularly irregular rhythm without murmurs or gallops Lungs: Breath sounds clear and present in all odell Abdomen: Obese soft nontender bowel sounds positive Extremities: Left hip shows equal leg lengths to the right passive range of motion is 5 to 85 degrees flexion -10 degrees internal rotation all which reproduces groin pain Neurological and vascular: Intact Principal Diagnosis Left Hip Osteoarthritis Discharge Data Allergies Allergy/AdvReac Type Severity Reaction Status Date / Time No Known Allergies Allergy Verified 10/17/23 08:37 Procedures Performed Operation Date: 10/17/23 09:15 Actual Procedures p Left Anterior Approach Total Hip Replacement(Left) - Cm Gates MD Ordered Studies 10/17/23 09:15 FL hip LT 1V Routine Hospital Course (1) Degenerative joint disease of left hip: Patient: LEEANN LAUREANO Admit Date: 10/17/23 MR#: [id number] Att Phy: Cm Gates MD Acct ID: [id number] [facility] Phy: Macy Lui MD Date: 1950 Fam Phy: Age: 73 Location: 3E Sex: M Room/Bed: E311 cc: ~ *NOTICE TO RECEIVING GREEN PARTY/AGENCY This information is strictly Confidential and protected under [place] law. [place] law prohibits you from making any further disclosure of this information unless further disclosure is expressly permitted by the written consent of the person to whom it pertains or is authorized by law. A general authorization for the release of medical or other information is not sufficient for this purpose. Hospital accepts no responsibility if the information is made available to any other person, INCLUDING THE PATIENT. Date of Service October 18, 2023 Assessment & Plan (1) Degenerative joint disease of left hip: Plan: patient is doing extremely well. He is ready for discharge to home. We did review hip precautions and physical therapy with him this morning. Also reviewed his Coumadin protocol. Per the Coumadin clinic. He will return to the office in 2 weeks time Plan Left total hip replacement direct anterior approach. Monitor overnight due to A-fib per anesthesia Plan for dc to home with Services Admission and Anticipated Discharge Date Admission Date: October 17, 2023 Subjective Postoperative day #1 left total hip replacement Patient is doing extremely well. He has been ambulatory with minimal assistance distances of over 500 feet. His pain is well-controlled. And he offers no complaints today. Review of Systems Review of Systems: Hip pain Physical Exam Physical Exam: Weight 126 kg BMI 38 General: Obese male who appears his stated age. HEENT: NCAT, EOMI, PERRLA Neck: Neck negative JVD negative bruits Heart: Irregularly irregular rhythm without murmurs or gallops Lungs: Breath sounds clear and present in all odell Abdomen: Obese soft nontender bowel sounds positive Extremities: Left hip shows equal leg lengths to the right passive range of motion is 5 to 85 degrees flexion -10 degrees internal rotation all which reproduces groin pain Neurological and vascular: Intact Musculoskeletal: His dressing is clean dry and intact. His hip is located. His thigh and calf are soft and nontender he is neurologically and vascularly intact His Hemovac drain was discontinued Results & Data Vital Signs (Past 12 Hours) Vital Signs Temp Pulse Resp BP BP Pulse Ox O2 Del Method 10/18/23 09:08 74 111/61 97 Room Air 10/18/23 07:26 36.9 C 90 16 101/62 95 Room Air 10/18/23 05:00 37.2 C 79 20 108/59 L 96 Room Air 10/18/23 01:21 36.6 C 77 18 108/70 96 Room Air Signed By: <Electronically signed by Cm Gates MD> 10/18/23 0951 Created: 10/18/23 0949 Total Time Total Time Spent Total Time Spent (In Minutes): 5 Discharge Plan Discharge Items Patient Disposition: Home - Home Health Services Reason For Visit: Left Hip Osteoarthritis Discharge Diagnosis: Left Hip Osteoarthritis Activity: Per Instructions section Non-emergency contact: Surgeon Call non-emergency contact if: you have any medication questions, your pain is not controlled, your temperature is above 101.5, your wound has increased redness and your wound has increased drainage Follow-up/Referrals: [facility] [Outside] (as per surgeon's office ) Lauren Mckenzie MD [Outside Practitioners] - Diet: Carb Consistent or DM2 Addtl Attending Provider Instructions: Please follow the Coumadin (Warfarin) schedule given to you by your Coumadin clinic specialists. You will need to take 17.5 mg of Coumadin tonight when you get home. Then follow instructions thereafter. DR. STONE POST-OP INSTRUCTIONS FOR TOTAL HIP ARTHROPLASTY PLEASE REVIEW PRIOR TO SURGERY Day of Surgery You will be admitted and meet the nursing and anesthesia team. Dr. Gates will see you and sign your operative side. Anesthesia will place your spinal anesthetic in the pre-op area Your surgery will be performed and last approximately 1 2 hours. Upon waking, you will notice a dressing and ice pack on your hip. You will remain in the recovery room for 1 2 hours, then be transferred to your room in the ambulatory surgical area if you are to go home the same day as your surgery or transferred to the orthopedic floor if you will be staying overnight. Most of Dr. Stone total hip patients go home the same day as surgery. This depends on how well you feel. Patients generally seem to feel better in their own home environment, and the risk of exposure to bad bugs is much lower. (Your post-operative medications will be sent to your pharmacy approximately 1-2 days prior to your procedure) Day 1 post-op (if you have an overnight stay in the hospital) You will have bloodwork drawn in the morning Physical therapy will evaluate you in the morning. You will start getting out of bed and ambulating with a walker. They will instruct you on hip motion exercises. Use your cold packs as instructed. This will decrease swelling and minimize pain. business services administrator will discuss your discharge plan. Discharge will generally be around 11am Day 1 post-op (all patients) You will be taking Aspirin 81mg twice for 4 weeks to decrease the risk of a blood clot. You will most likely have a drain and a TESSIE (superficial wound VAC) dressing post-operatively. This will keep your incision dry as well as aid in early healing. The batteries will wear out and the VAC will lose suction around day 6 - 7 post-op. At that time, you may turn off the device and disconnect from the dressing. You must keep the dressing on until your first post- operative visit with Dr. Gates. If the dressing appears to be saturated, please call our office. Day 2 14 post-op You will have a home nurse visit to assess your status and remove your drain on post-op day 2. You are permitted to shower immediately with the VAC. Do not soak the dressing let the shower flow on your opposite side, and pat dry the plastic. Once the dressing has been removed, you may shower normally with the incision exposed. Do not rub the area simply let soapy water run over the incision and lightly pat dry. Therapy will begin on post-op day 3. Your therapy prescription will be sent to your home therapy company/therapist You should continue doing your home exercises Week 2 post-op and forward You will have your first post-op appointment 2 weeks after surgery which should have been scheduled for you by our office. This appointment will be to check your incision, progression of therapy and pain control. Xrays will be taken to evaluate the prosthesis. You will continue to use a cane or a walker until you feel safe enough to stop using it. You will have a 6-week post-op appointment which should have been scheduled for you by our office. Xrays will be taken to evaluate the prosthesis. You will continue to advance range of motion. By 3 to 4 months after surgery, you should have almost full range of motion and may resume most activities. You may have some pain around the hip with certain activities this is completely normal. You will be scheduled for a 1 year post-op appointment to assess your outcome (sooner if Dr. Gates feels necessary). Pain: The immediate post-op period after hip replacement surgery can be painful. However, the degree and frequency of the pain is generally much less than knee replacement surgery. You should take your pain medicine as you need it, especially prior to physical therapy and bedtime. Your pain will decrease and you may transition to a milder pain medicine (with less side effects, such as Tylenol) as soon as possible. It is common to have pain at night that interferes with sleep this can last for several months. Pain medicines can cause nausea and constipation do not take more than you need. You may be prescribed one or more of the following medications: 1. Celebrex this controls inflammation and makes pain medications mor effective it will be taken once or twice a day 2. Tylenol a pain medicine that can help to decrease your pain you should take 1000mg three times a day 3. Tramadol a pain medicine that can be taken every 4-6 hours (instead of Oxycodone) as needed to control your pain 4. Oxycodone a VERY strong pain medicine that can be taken every 4-6 hours (instead of Tramadol) as needed to control your pain. This medication has the most side effects and is usually not necessary for hip replacement. 5. RESUME YOUR WARFARIN DOSING BEFORE. blood thinning medication to help minimize the risk of development of blood clots unfortunate side effects of pain medicine include nausea and constipation if you experience these issues or have any questions about your post-op medications, call [facility] at for assistance/advice on how to manage these issues Hip replacement surgery does not require a lot of aggressive physical therapy. Learning to walk safely and obeying hip precautions are most important. While in the hospital, you will be shown a series of home exercises you should perform these exercises 3 4 times daily in addition to physical therapy. After the completion of home therapy (approx.. 2 weeks), most therapy exercises can be done on your own. You should walk several times a day. Try not to be standing for more than an hour at a time during the first 4 weeks post-op as you may experience more swelling. If you develop swelling, you need to elevate your legs/feet at or above the level of your heart. You may progress from a walker to a cane to walking independently as you feel comfortable. Unless it is an emergency, YOUR ARE NOT PERMITTED TO HAVE ANY DENTAL CLEANING/WORK UNTIL 3 MONTHS AFTER SURGERY. You will be required to take an antibiotic prior to any dental cleaning or dental work in order to prevent your joint prothesis from getting infected. This medication is a one time per visit dose to be taken one hour prior to appointment. You may call our office for this prescription or your dentist may be willing to prescribe the medication. Remember to contact [facility] at if you develop any signs of infecti on which include increased swelling, pain, redness, drainage from incision, warmth, fever, chills or severe pain unrelieved by pain medication. If you develop any chest pain or shortness of breath, you should proceed immediately to the nearest Emergency Room. It is normal to run a low-grade fever after surgery. If your fever is consistent at 101.0 or higher, you will need to contact the office. Stand-Alone Forms: My [facility] Medications and DC Order Prescriptions: Continued furosemide [Lasix] 20 mg tablet 20 mg PO DAILY PRN (Reason: edema) Qty: 7 0RF multivitamin Tablet 1 tab PO QAM metformin 500 mg Tablet 500 mg PO BID warfarin 10 mg Tablet 10 mg PO HS Rx Instructions: SATURDAY,SATURDAY, SATURDAY, SATURDAY warfarin 7.5 mg Tablet 7.5 mg PO HS Rx Instructions: SATURDAY, SATURDAY, SATURDAY atenolol 25 mg Tablet 25 mg PO QAM Vitamin B-12 50 mcg Tablet 50 mcg PO QAM losartan-hydrochlorothiazide 100-25 mg Tablet 1 tab PO HS rosuvastatin 20 mg Tablet 20 mg PO HS alpha lipoic acid 50 mg Tablet 50 mg PO QAM potassium chloride 20 mEq Tablet Extended Release 20 meq PO BID Jardiance 10 mg Tablet 10 mg PO QAM aspirin 81 mg Capsule 81 mg PO HS cholecalciferol (vitamin D3) [Vitamin D3] 50 mcg (2,000 unit) Capsule 50 mcg PO DAILY Krames/Other Patient Handouts: DVT Post Op Prevention, Understanding Hip Replacement Admission Data Admit Date/Time: 10/17/23 11:36 Attending Provider: Cm Gates Admit Provider: Cm Gates Primary Care Provider: Macy Lui Other Providers: Carlita,Home Health Other Interventions: Discharge Summary Assessment (RN) Last Done: 10/18/23 10:52
== END 2023-10-18 11:33 | disposition home health service (06) ==
LOC: ASU 07:33 → 3E 07:33